=== PATIENT | male | born 1960 | race Caucasian/White ===

== ENCOUNTER 2021-01-10 15:14 | Outpatient (REF) | payer OTHER, SELFPAY ==
[2021-01-10 17:55] LABS: MANUAL DIFF FLAG NO
[2021-01-10 18:06] LABS: Basophils Percent Auto 0.5 % (0-2); Eosinophils Absolute Auto 0.1 X10*3/uL (0.0-0.4); Eosinophils Percent Auto 1.9 % (0-4); Hematocrit 38.4 % (42-52); Hemoglobin 13.5 g/dl (14.0-18.0); Imm Gran Abs Auto 0.01 X10*3/uL (0.00-0.03); Imm Gran Pct Auto 0.2 % (0.0-0.4); Lymphocytes Absolute Auto 1.9 X10*3/uL (1.2-4.9); Lymphocytes Percent Auto 29.5 % (20-40); Mean Corpuscular HGB Conc 35.2 g/dl (31.0-36.0); Mean Corpuscular Hemoglobin 32.1 pg (27.0-33.0); Mean Corpuscular Volume 91.2 fL (80-98); Mean Platelet Volume 10.6 fL (9.4-12.4); Monocytes Absolute Auto 0.5 X10*3/uL (0.1-1.2); Monocytes Percent Auto 8.4 % (2-11); Neutrophils Absolute Auto 3.8 X10*3/uL (2.0-8.3); Neutrophils Percent Auto 59.5 % (45-73); Platelet Count 170 X10*3/uL (160-400); Red Blood Count 4.21 X10*6/uL (4.60-5.80); Red Cell Distribution Width 12.9 % (11.0-16.0); White Blood Count 6.3 X10*3/uL (4.8-10.8)
[2021-01-10 18:24] LABS: Alanine Aminotransferase 16 U/L (0-40); Albumin Level 4.2 g/dL (3.5-5.0); Alkaline Phosphatase 79 U/L (39-117); Anion Gap 11 (12-20); Aspartate Amino Transferase 21 U/L (5-37); Bilirubin Total 1.2 mg/dL (0.0-1.0); Blood Urea Nitrogen 27 mg/dL (9-16); Calcium 9.6 mg/dL (8.4-10.2); Carbon Dioxide 26 mmol/L (22-29); Chloride 106 mmol/L (96-108); Estimated Glomerular Filt Rate > 60; Glucose Random 84 mg/dL (60-115); Potassium 4.2 mmol/L (3.3-5.1); Sodium 139 mmol/L (135-145); Total Protein 7.7 g/dL (6.5-8.0)
[2021-01-10 18:45] LABS: Thyroid Stimulating Hormone 1.22 uIU/mL (0.32-4.0)
== END 2021-01-10 15:15 | disposition home or self-care (01) ==
LOC: HO.MANLDS 15:14
PROVIDERS: PCP Internal Medicine; Visit Provider Internal Medicine
DX: R42 Dizziness and giddiness (principal)
CPT/HCPCS: 36415; 80053; 84443; 85025

== ENCOUNTER 2021-10-10 11:25 | Outpatient (REF) | payer OTHER, SELFPAY ==
[2021-10-10 14:00] LABS: MANUAL DIFF FLAG NO
[2021-10-10 14:22] LABS: Alanine Aminotransferase 16 U/L (0-40); Albumin Level 4.4 g/dL (3.5-5.0); Alkaline Phosphatase 80 U/L (39-117); Anion Gap 11 (12-20); Aspartate Amino Transferase 20 U/L (5-37); Blood Urea Nitrogen 23 mg/dL (9-16); Calcium 9.4 mg/dL (8.4-10.2); Carbon Dioxide 29 mmol/L (22-29); Chloride 102 mmol/L (96-108); Cholesterol 207 mg/dL; Estimated Glomerular Filt Rate > 60; Glucose Random 77 mg/dL (60-115); HDL Cholesterol 35 mg/dL; LDL Cholesterol Calculated 135 mg/dl; Potassium 4.2 mmol/L (3.3-5.1); Sodium 138 mmol/L (135-145); Total Protein 8.1 g/dL (6.5-8.0); Triglycerides 186 mg/dL
[2021-10-10 14:27] LABS: Basophils Percent Auto 0.4 % (0-2); Eosinophils Absolute Auto 0.1 X10*3/uL (0.0-0.4); Eosinophils Percent Auto 1.8 % (0-4); Hematocrit 43.5 % (42.0-52.0); Hemoglobin 14.6 g/dl (14.0-18.0); Imm Gran Abs Auto 0.02 X10*3/uL (0.00-0.03); Imm Gran Pct Auto 0.3 % (0.0-0.4); Lymphocytes Absolute Auto 2.4 X10*3/uL (1.2-4.9); Lymphocytes Percent Auto 33.8 % (20-40); Mean Corpuscular HGB Conc 33.6 g/dl (31.0-36.0); Mean Corpuscular Hemoglobin 31.1 pg (27.0-33.0); Mean Corpuscular Volume 92.8 fL (80.0-98.0); Mean Platelet Volume 10.3 fL (9.4-12.4); Monocytes Absolute Auto 0.6 X10*3/uL (0.1-1.2); Monocytes Percent Auto 8.8 % (2-11); Neutrophils Percent Auto 54.9 % (45-73); Platelet Count 166 X10*3/uL (160-400); Red Blood Count 4.69 X10*6/uL (4.60-5.80); Red Cell Distribution Width 13.2 % (11.0-16.0); White Blood Count 7.2 X10*3/uL (4.8-10.8)
[2021-10-10 14:49] LABS: Prostate Specific Antigen 1.22 ng/mL (<0.05-4.0)
[2021-10-10 15:04] LABS: Erythrocyte Sedimentation Rate 15 MM/HR (0-15)
[2021-10-11 05:07] LABS: ~HepC Num1 0.24 S/CO (0.00-0.79); ~Hepatitis C Antibody Nonreactive (Nonreactive)
== END 2021-10-10 11:26 | disposition home or self-care (01) ==
LOC: HO.MANLDS 11:25
PROVIDERS: Visit Provider Internal Medicine
DX: Z12.5 Encounter for screening for malignant neoplasm of prostate (principal); Z11.59 Encounter for screening for other viral diseases; H81.12 Benign paroxysmal vertigo, left ear; I10 Essential (primary) hypertension
CPT/HCPCS: 36415; 80053; 80061; 84153; 85025; 85652; 86803

== ENCOUNTER 2022-05-13 16:16 | Outpatient (REF) | payer OTHER, SELFPAY ==
[2022-05-13 18:43] LABS: MANUAL DIFF FLAG NO
[2022-05-13 18:46] LABS: Basophils Absolute Auto 0.1 X10*3/uL (0.0-0.2); Basophils Percent Auto 0.7 % (0-2); Eosinophils Absolute Auto 0.1 X10*3/uL (0.0-0.4); Eosinophils Percent Auto 1.2 % (0-4); Hemoglobin 12.8 g/dl (14.0-18.0); Imm Gran Abs Auto 0.02 X10*3/uL (0.00-0.03); Imm Gran Pct Auto 0.3 % (0.0-0.4); Lymphocytes Absolute Auto 1.8 X10*3/uL (1.2-4.9); Mean Corpuscular HGB Conc 33.7 g/dl (31.0-36.0); Mean Corpuscular Hemoglobin 30.6 pg (27.0-33.0); Mean Corpuscular Volume 90.9 fL (80.0-98.0); Mean Platelet Volume 10.2 fL (9.4-12.4); Monocytes Absolute Auto 0.6 X10*3/uL (0.1-1.2); Neutrophils Percent Auto 65.8 % (45-73); Platelet Count 211 X10*3/uL (160-400); Red Blood Count 4.18 X10*6/uL (4.60-5.80); Red Cell Distribution Width 12.9 % (11.0-16.0); White Blood Count 7.6 X10*3/uL (4.8-10.8)
[2022-05-13 19:03] LABS: Alanine Aminotransferase 17 U/L (0-40); Albumin Level 4.1 g/dL (3.5-5.0); Alkaline Phosphatase 93 U/L (39-117); Anion Gap 12 (12-20); Aspartate Amino Transferase 21 U/L (5-37); Bilirubin Total 0.9 mg/dL (0.0-1.0); Blood Urea Nitrogen 29 mg/dL (9-16); Calcium 9.6 mg/dL (8.4-10.2); Carbon Dioxide 27 mmol/L (22-29); Chloride 104 mmol/L (96-108); Estimated Glomerular Filt Rate > 60; Glucose Random 80 mg/dL (60-115); Potassium 4.8 mmol/L (3.3-5.1); Sodium 138 mmol/L (135-145); Total Protein 7.6 g/dL (6.5-8.0); Uric Acid 6.3 mg/dL (3.4-7.0)
[2022-05-13 19:35] LABS: Erythrocyte Sedimentation Rate 34 MM/HR (0-15)
== END 2022-05-13 16:17 | disposition home or self-care (01) ==
LOC: HO.MANLDS 16:16
PROVIDERS: Visit Provider Internal Medicine
DX: L03.116 Cellulitis of left lower limb (principal)
CPT/HCPCS: 36415; 80053; 84550; 85025; 85652; 86140

== ENCOUNTER 2022-11-06 08:36 | Outpatient (REF) | payer OTHER, SELFPAY | END 2022-11-06 08:37 | disposition home or self-care (01) | LOC: HO.MANLDS 08:36 | PROVIDERS: Visit Provider Internal Medicine | DX: Z12.5 Encounter for screening for malignant neoplasm of prostate (principal); I10 Essential (primary) hypertension; E78.2 Mixed hyperlipidemia | CPT/HCPCS: 36415; 80053; 80061; 84153; 85025 ==

== ENCOUNTER 2023-01-03 11:32 | Outpatient (REF) | payer OTHER, SELFPAY ==
[2023-01-03 13:09] LABS: MANUAL DIFF FLAG NO
[2023-01-03 13:30] LABS: Basophils Percent Auto 0.5 % (0-2); Eosinophils Absolute Auto 0.1 X10*3/uL (0.0-0.4); Eosinophils Percent Auto 0.9 % (0-4); Hematocrit 40.7 % (42.0-52.0); Hemoglobin 14.4 g/dl (14.0-18.0); Imm Gran Abs Auto 0.02 X10*3/uL (0.00-0.03); Imm Gran Pct Auto 0.3 % (0.0-0.4); Lymphocytes Absolute Auto 2.3 X10*3/uL (1.2-4.9); Lymphocytes Percent Auto 36.1 % (20-40); Mean Corpuscular HGB Conc 35.4 g/dl (31.0-36.0); Mean Corpuscular Hemoglobin 31.9 pg (27.0-33.0); Mean Corpuscular Volume 90.2 fL (80.0-98.0); Mean Platelet Volume 10.1 fL (9.4-12.4); Monocytes Absolute Auto 0.6 X10*3/uL (0.1-1.2); Neutrophils Absolute Auto 3.4 x10*3/uL (2.0-8.3); Neutrophils Percent Auto 53.2 % (45-73); Platelet Count 184 X10*3/uL (160-400); Red Blood Count 4.51 X10*6/uL (4.60-5.80); Red Cell Distribution Width 12.9 % (11.0-16.0); White Blood Count 6.5 X10*3/uL (4.8-10.8)
[2023-01-03 15:07] LABS: Alanine Aminotransferase 18 U/L (0-40); Albumin Level 4.3 g/dL (3.5-5.0); Alkaline Phosphatase 84 U/L (39-117); Anion Gap 14 (12-20); Aspartate Amino Transferase 21 U/L (5-37); Bilirubin Total 1.4 mg/dL (0.0-1.0); Blood Urea Nitrogen 29 mg/dL (9-16); Calcium 10.1 mg/dL (8.4-10.2); Carbon Dioxide 24 mmol/L (22-29); Chloride 104 mmol/L (96-108); Cholesterol 169 mg/dL (<200); Estimated Glomerular Filt Rate > 60; Glucose Random 80 mg/dL (60-115); HDL Cholesterol 37 mg/dL (>40); LDL Cholesterol Calculated 102 mg/dL (<100); Potassium 4.3 mmol/L (3.3-5.1); Sodium 138 mmol/L (135-145); Triglycerides 150 mg/dL (<150)
[2023-01-03 15:09] LABS: Prostate Specific Antigen 1.49 ng/mL (<0.05-4.0)
== END 2023-01-03 11:33 | disposition home or self-care (01) ==
LOC: HO.MANLDS 11:32
PROVIDERS: Visit Provider Internal Medicine
DX: Z12.5 Encounter for screening for malignant neoplasm of prostate (principal); E78.2 Mixed hyperlipidemia; I10 Essential (primary) hypertension
CPT/HCPCS: 36415; 80053; 80061; 84153; 85025

== ENCOUNTER 2023-02-22 17:58 | Emergency (ER) | payer OTHER, SELFPAY ==
--- NOTE | ~2023-02-22 | XR_ITS ---
EXAMINATION: XR LUMBOSACRAL SPINE CLINICAL INFORMATION: Left hip pain radiating down leg. COMPARISON: None available. TECHNIQUE: Three views of the lumbosacral spine. FINDINGS: Alignment is anatomic. No compression fracture. Multilevel degenerative disc disease with severe degenerative disc disease at L5-S1 and more mild changes throughout the rest of the lumbar spine. XR/XR lumbar spine 2-3V IMPRESSION: Multilevel degenerative disc disease most prominent at L5-S1.
[2023-02-22 18:05] VITALS: BP 151/91; PULSE 92; RESP 20; TEMP 36.8; O2SAT 97; BMI 27.4
--- NOTE | 2023-02-22 18:07 | ED.GENADULT ---
HPI - General Adult General Chief complaint: Back Pain/Injury Stated complaint: Left leg pain 4 days Time Seen by Provider: 02/22/23 23:17 Source: patient, family, RN notes reviewed and old records reviewed Mode of arrival: ambulatory Limitations: no limitations History of Present Illness HPI narrative: 62-year-old male presents for evaluation of left hip pain. His pain is been present for the last 5 days. His pain starts the left hip and radiates to the left thigh and her left knee. His pain is worse with resting after standing and walking for a long time he reports that he had an x-ray at Urgent Care yesterday of the left hip that showed [id number] arthritis but no other abnormalities he denies any falls or trauma. 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 Related Data Previous Rx's Medication Instructions Recorded dexamethasone 4 mg tablet 4 mg PO BID #6 tabs 02/22/23 lidocaine 5 % topical patch 1 patch topical DAILY #15 ea 02/22/23 oxycodone 5 mg tablet 5 mg PO Q6H PRN severe pain (scale 02/22/23 score 7-10) #16 tabs Allergies Allergy/AdvReac Type Severity Reaction Status Date / Time Penicillins Allergy Unknown unknown Verified 02/22/23 18:10 Review of Systems Constitutional: Constitutional: Denies body ache(s), Denies chills and Denies fever(s) Eyes: Eyes: Denies blurry vision Cardiovascular: Cardiovascular: Denies chest pain and Denies dyspnea Respiratory: Respiratory: Denies cough and Denies dyspnea Gastrointestinal: Gastrointestinal: Denies abdominal pain, Denies nausea and Denies vomiting Musculoskeletal: Musculoskeletal: Reports arthralgias, Reports joint swelling and Reports limited range of motion Integumentary/Breasts: Skin/Breast: Denies rash PMFSH Social History Social History Alcohol intake: current Alcohol intake frequency: holidays/special occasions only Smoked in Last 30 Days: Yes Use of substances other than those prescribed or required for medical reasons: Yes Substance Use Type: Marijuana Any prior treatment program specific to substance use: No Advance Directives: No Advance Directives Information Provided: No Physical Exam ED Vital Signs: Vital Signs - 24 hr 02/22/23 18:05 02/22/23 21:02 Temperature 98.2 F 97.9 F Pulse Rate 92 75 Respiratory Rate 20 14 Blood Pressure 151/91 H 156/75 H Pulse Oximetry 97 96 Oxygen Delivery Method Room Air Room Air BMI result Body Mass Index 27.4 Const General: healthy appearing, comfortable, no acute distress, alert and awake Nutritional Appearance: well nourished Orientation/consciousness: patient oriented x3 HENMT Head: Yes normocephalic and Yes atraumatic Eyes Eyelids: Yes eyelids normal Conjunctivae: conjunctivae normal Sclerae: sclerae normal Corneas: corneas normal Pupils: Equal, round and reactive pupils present EOM: EOMs intact bilaterally Neck Neck: Yes full ROM Resp Effort & Inspection: normal respiratory effort, able to speak in complete sentences and not labored Skin General skin exam: no rashes or lesions noted and elasticity normal Neuro General: patient oriented x3 Cranial nerves: Yes Equal, round and reactive pupils present and Yes Bilaterally intact EOM present Cognition (Neuro): normal cognition Extrem Other: Moving all extremities well without any obvious deformities. patient has minimal left hip tenderness to palpation. There is no significant lumbar vertebral tenderness or left lumbar paraspinous muscle tenderness. Negative straight leg raise on left. Course Course Course Narrative: This is a rapid medical exam: Additional HPI, ROS, PE not included below will be deferred to primary provider. Patient is a 62-year-old male presenting to the ED with complaint of left hip pain radiating to groin, states is worst at night. Symptoms have been ongoing for one week, began after hauling wood. Denies any swelling. States the pain will intermittently shoot down to left knee and foot. Has taken ibuprofen 800mg, tizanidine, Tylenol, Tramadol at baseline, all without relief. Denies any groin or scrotal swelling. Went [facility] urgent care yesterday and had left hip x-ray which was remarkable only for osteoarthritis of hip and SI joint. Plan: lumbar x-ray Medications Administered Discontinued Medications Generic Name Dose Route Start Last Admin Trade Name Freq PRN Reason Stop Dose Admin Dexamethasone 4 mg 02/22/23 23:31 02/22/23 23:40 Dexamethasone 4 Mg Tablet PO 02/22/23 23:32 4 mg ONCE ONE Administration Ibuprofen 600 mg 02/22/23 23:10 02/22/23 23:41 Ibuprofen 600 Mg Tablet PO 02/22/23 23:11 Not Given ONCE ONE Oxycodone HCl 5 mg 02/22/23 23:31 02/22/23 23:40 Oxycodone Hcl Immed Release 5 Mg Tablet PO 02/22/23 23:32 5 mg ONCE ONE Administration Medical Decision Making Medical Decision Making [facility] Narrative: 62-year-old male with no significant past medical history presents for evaluation of pain to his left hip and leg. His physical exam is most consistent with bursitis. He has been using NSAIDs and Tylenol with minimal relief. He is constantly and is he reports that he is a workaholic and not resting. There was no trauma, he had a negative left hip x-ray which she brought with him to confirm. He had an x-ray lumbar spine at this facility which shows [id number] arthritis. This was discussed with him. There are no warning signs for cauda equina syndrome he will be treated symptomatically and will follow up with his PCP Differential Diagnosis Differential Diagnoses: The differential diagnosis associated with the presentation includes osteoarthritis Degenerative joint disease Bursitis radiculopathy Sciatica Avascular necrosis Independent Interpretation I performed an independent interpretation of an: Plain X-Ray Interpretation: no obvious compression fracture Radiology Impression Discussion of test interpretation with radiology: I have reviewed the radiologist's reading. Radiologist Impression: multilevel degenerative disc disease most prominent at L5-S1 Discharge Plan Discharge Clinical Impression: Acute pain of left hip Patient Disposition: Home, Self-Care Instructions: Arthralgia (ED) Additional Instructions: alternate ibuprofen/ Tylenol as needed for pain. Use oxycodone for more severe, breakthrough pain this may make you sleepy, do not drink alcohol or drive after taking them take dexamethasone twice daily for the next 3 days follow-up with your primary doctor I strongly recommend taking a few days off from work and a work note is enclosed Prescriptions: New oxycodone 5 mg tablet 5 mg PO Q6H PRN (Reason: severe pain (scale score 7-10)) Qty: 16 0RF Rx Instructions: Partial Fill upon patient request. dexamethasone 4 mg tablet 4 mg PO BID Qty: 6 0RF lidocaine 5 % adhesive patch,medicated 1 patch topical DAILY Qty: 15 0RF Rx Instructions: leave on most painful area for up to 12 hrs Stand Alone Forms: Work/School Release
[2023-02-22 21:02] VITALS: BP 156/75; PULSE 75; RESP 14; TEMP 36.6; O2SAT 96
[2023-02-22] MEDS: oxyCODONE HCl Immed Release 5 MG TABLET PO (23:40)
[2023-02-22] MEDS: dexAMETHasone 4 MG TABLET PO (23:40)
[2023-02-23 00:15] VITALS: BP 156/75; PULSE 75; RESP 15; TEMP 36.4; O2SAT 95
[2023-02-23] MEDS: Lidocaine 4 % Patch ADH..PATCH 1 PATCH TRANSDERMA (00:23)
== END 2023-02-23 00:30 | disposition home or self-care (01) ==
PROVIDERS: Emergency Provider Emergency Medicine Emergency Medical Services
DX: M25.552 Pain in left hip (principal)
CPT/HCPCS: 72100; 99283; 99284; J8540

== ENCOUNTER 2024-10-15 16:02 | Outpatient (REF) | payer OTHER, SELFPAY ==
--- OUTSIDE RECORDS SUMMARY | 2024-10-15 16:04 | XMS_ITS | Continuity of Care Document ---
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 MODERATE MUST MEET 2 OUT OF 3 ELEMENTS: PROBLEMS, DATA OR RISK ELEMENT 1: PROBLEMS ADDRESSED 1 OR MORE CHRONIC ILLNESS WITH EXACERBATION OR 2 OR MORE STABLE CHRONIC ILLNESSES OR 1 UNDIAGNOSED NEW PROBLEM OR 1 ACUTE ILLNESS W/SYMPTOMS OR 1 ACUTE COMPLICATED INJURY ELEMENT 2: DATA MUST MEET 1 OF 3 CATEGORIES CATEGORY 1: REVIEW OF PRIOR EXTERNAL NOTES, REVIEW OF RESULTS, ORDERING OF EACH TEST, ASSESSMENT REQUIRING INDEPENDENT HISTORIAN OR CATEGORY 2: INDEPENDENT INTERPRETATION OF TESTS BY ANOTHER PHYSICIAN OR SPECIALIST OR CATEGORY 3: DISCUSSION OF MGT OR TEST INTERPRETATION W/EXTERNAL PHYSICIAN OR SPECIALIST ELEMENT 3: RISK RISK OF COMPLICATIONS AND/OR MORBIDITY OR MORTALITY OF PATIENT MANAGEMENT PROVIDER MUST THOROUGHLY DOCUMENT EACH ELEMENT THAT IS COVERED Not available 10/12/2024 16:30:32 Plan of Treatment Reminders Order Date Submit Date Provider Last Modified By Organization Details Last Modified Time Details Appointments FOLLOW UP 15 2024 04:15P M DR SAVAGE Not available Not available Not available Lab testoster one, total, serum 2024 025 [facility], [address] [place] [address], [place], [address], 10/12/2024 16:36:45 vitamin B12 + folate, serum or blood 2024 025 [facility], [address] [place] [address], [place], [address], 10/12/2024 16:36:46 vitamin D, 25-hydrox y, total, serum 2024 025 [facility], [address] [place] [address], [id number], 10/12/2024 16:36:46 CBC 2024 025 [facility], [address] [place] [address], [id number], 10/12/2024 16:36:45 CMP, serum or plasma 2024 025 [facility], [address] [place] [address], [id number], 10/12/2024 16:36:45 ESR (erythroc yte sedimenta tion rate), blood [address] [place] [address] Laboratory, [address] [place] [address], [id number], 10/12/2024 16:36:45 TSH, serum or plasma [address] [place] [address] Laboratory, [address] [place] [address], [id number], 10/12/2024 16:36:36 PSA, serum or plasma [address] [place] [address] Laboratory, [address] [place] [address], [id number], 10/12/2024 16:36:36 Referral None recorded. Procedures None recorded. Surgeries None recorded. Imaging None recorded. Medication Orders None recorded. Patient TargetsNo targets recorded. Patient Instructions Encounter Date Encounter Id Patient Instructions Last Modified By Organization Details Last Modified Time 10/12/2024 [id number] fatigue: care instructions Not available 10/12/2024 16:30:34 Reason for Referral None Reported. Problems Name Problem SNOMED Code Status Onset Date Resolution Date Notes Provider Name and Address Organization Details Recorded Time Mixed hyperlip idemia 304009313 Active 2020 Rachel Walker null, [facility] 4 11:08:04 Tobacco user 052207607 Active 2020 Rachelrenetta Walker null, [facility] 4 11:08:04 Chronic pain syndrome 615466113 Active 2020 tramadol Rachelrenetta Walker null, [facility] 4 11:08:04 [facility] hyperten gumaro 74043319 Active 2020 Rachel Walker null, [facility] 4 11:08:04 Alopecia areata 62636404 Active 2020 Rachelrenetta Walker null, [facility] 4 11:08:04 Low back pain 351195190 Active 2020 Rachelrenetta Walker null, [facility] 4 11:08:04 Allergic rhinitis 94309850 Active 2020 pollen Rachel Walker null, [facility] 4 11:08:04 Position al vertigo 366796856 Active 2021 Rachelrenetta Walker null, [facility] 4 11:08:04 Neck pain 86135356 Active 2021 Rachel Walker null, [facility] 4 11:08:04 COVID-19 558053506 Active 2021 Rachel Walker null, [facility] 4 11:08:14 Gout 11338725 Active 2021 Rachel Walker null, [facility] 4 11:08:04 Cellulit is of left foot 65458460229 352337 Active 2021 Rachel Walker null, [facility] 4 11:08:14 Nausea 398933082 Active 2021 Rachel Walker null, [facility] 4 11:08:14 Pain in left foot 37097002768 9107 Active 2021 Rachel Walker null, [facility] 4 11:08:04 Neuropat hy 956543480 Active 2021 Rachelrenetta Walker null, [facility] 4 11:08:04 Osteomye litis of left foot 93191976571 30316 Active 2022 Rachel Walker null, [facility] 4 11:08:04 Palpitat ions 80278829 Active 2022 Rachel Walker null, [facility] 4 11:08:04 Degenera tion of lumbar interver tebral disc 27679195 Active 2022 Rachel Walker null, [facility] 4 11:08:04 Weakness of left lower limb Active 2022 Rachel Walker null, [facility] 4 11:08:04 Lumbar spondylo sis 040392516 Active 2022 Rachel Walker null, [facility] 4 11:08:04 Spasm 74195649 Active 2022 Rachel Walker null, [facility] 4 11:08:04 Pain in lower limb 83429463 Active 2022 Rachel Walker null, [facility] 4 11:08:04 Nausea and vomiting 54833634 Active 2022 Rachel Walker null, [facility] 4 11:08:14 Rhabdomy olysis 554021820 Active 2022 Rachel Walker null, [facility] 4 11:08:04 Pain in bilatera l legs 58381625952 877737 Active 2023 Rachel Walker null, [facility] 4 11:08:04 Pain of bilatera l hip joints 88890634343 116234 Active 2023 Bo Savage, DO [address] [place] [address], [place], [address], [facility] 4 16:49:59 Pain of left knee joint 54896412659 4107 Active 2023 Bo Savage DO [address] [place] [address], [address], [facility] 4 16:50:16 Mood disorder 52919213 Active 2023 Bo Savage DO [address] [place] [address], [address], [facility] 4 16:55:07 Pain of left hip joint 75164999902 9100 Active 2023 Bo Savage DO [address] [place] [address], [phone], [facility] 4 21:38:29 Traumati c rupture of labrum of left acetabul um 28672483711 052207 Active 2023 Bo Savage DO [address] [place] [address], [address], [facility] 4 16:25:10 Psoas syndrome 974243158 Active 2024 Bo Savage DO [address] [place] [address], [address], [facility] 5 16:22:27 Iliopsoa s bursitis of left hip 17633580649 11988 Active 2024 Bo Savage DO [address] [place] [address], [address], [facility] 5 16:22:55 Malaise and fatigue 031824461 Active 2024 Bo Savage DO [address] [place] [address], [address], [facility] 5 16:28:21 Problem Notes None recorded. Procedures Surgical History Date Name Laterality Status Provider Name and Address Organization Details Recorded Time 7 Colonoscopy completed Tiffany Gaitan [facility] 11/12/2022 16:05:00 Imaging Results None recorded. Procedure Notes None recorded. Medical Equipment None Reported. Allergies Allergen ID Allergen Name Allergen Category Reaction Reaction Severity Criticality Documentation Date Start Date Code Code System Note Provider Name and Address Organization Details Recorded Time 4322 penicilli n V Not available Not available Not available Not available 07/05/2020 7984 RxNorm child padron Tiffany clemente [facility] 08:50:49 4323 POLLEN EXTRACTS environme nt,medica tion Not available Not available Not available 07/05/2020 68531 6 RxNorm Tiffany clemente [facility] 08:53:20 Medications Name Sig Start Date Stop Date Status Note LastModified by Organization Details LastModified Time p-4 pain formulation versatile Apply 1-3 grams to the affected area 3-4 times daily (LEFT FOOT) 09/02 completed Not Available Not Available Not Available cyclobenzap rine 10 mg tablet Take 1 tablet 3 times a day by oral route as needed for 14 days. 02/19 completed Not Available Not Available Not Available pramipexole 1 mg tablet TAKE 1 TABLET BY MOUTH THREE TIMES A DAY NEEDED FOR 7 DAYS 09/02 completed Not Available Not Available Not Available bupropion HCl SR 150 mg tablet,12 hr sustained-r elease TAKE 1 TABLET BY MOUTH TWICE A DAY 06/07 completed Not Available Not Available Not Available prednisone 10 mg tablet TAKE 5 TABS DAILY IN THE MORNING X2 DAYS, 4 TABS X1 DAY, 3 TABS X1 DAY, 2 TABS X1 DAY, 1 TAB X1 DAY active Not Available Not Available No t Available clindamycin HCl 300 mg capsule TAKE 1 CAPSULE EVERY 8 HOURS FOR 7 DAYS active Not Available Not Available No t Available lisinopril 20 mg-hydrochl orothiazide 12.5 mg tablet Take 1 tablet every day by oral route. 08/28 completed Not Available Not Available Not Available tizanidine 4 mg tablet Take 1 tablet every 6 hours by oral route as needed for 10 days. 05/10 completed Not Available Not Available Not Available ondansetron HCl 8 mg tablet Take 1 tablet twice a day by oral route as needed for 7 days. 09/02 completed Not Available Not Available Not Available meloxicam 15 mg tablet TAKE 1 TABLET BY MOUTH EVERY DAY WITH DINNER 06/07 completed Not Available Not Available Not Available lisinopril 20 mg tablet TAKE 1 TABLET BY MOUTH EVERY DAY active Not Available Not Available No t Available Medrol (Desean) 4 mg tablets in a dose pack Take 1 dose pk by oral route. 05/01 completed Not Available Not Available Not Available prednisone 20 mg tablet TAKE 2 TABLETS EVERY DAY BY ORAL ROUTE FOR 14 DAYS. 03/14 completed Not Available Not Available Not Available Zithromax Z-Desean 250 mg tablet TAKE 2 TABLETS (500 MG) BY ORAL ROUTE ONCE DAILY FOR 1 DAY THEN 1 TABLET (250 MG) BY ORAL ROUTE ONCE DAILY FOR 4 DAYS 01/11 completed Not Available Not Available Not Available tramadol 50 mg tablet TAKE 2 TABLETS BY MOUTH 3 TIMES A DAY active Not Available Not Available No t Available acetaminoph en 500 mg tablet TAKE 1 TABLET BY MOUTH EVERY 8 HOURS FOR 7 DAYS active Not Available Not Available No t Available chlorzoxazo ne 250 mg tablet TAKE 2-3 TABLETS BY MOUTH UP TO THREE TO FOUR TIMES DAILY NEEDED FOR SPASMS 06/07 completed Not Available Not Available Not Available flaxseed oil 1,000 mg capsule Take 3 capsules every day by oral route. 06/07 completed Not Available Not Available Not Available ceftriaxone 1 gram solution for injection TAKE 1 G BY INJECTION ROUTE DIRECTED FOR 1 DAY. 03/14 completed Not Available Not Available Not Available hydromorpho ne 2 mg tablet Take 1 tablet every 8 hours by oral route as needed for 5 days. 09/02 completed Not Available Not Available Not Available doxycycline monohydrate 100 mg capsule TAKE 1 CAPSULE BY MOUTH TWICE A DAY FOR 7 DAYS active Not Available Not Available No t Available cephalexin 500 mg capsule TAKE 1 CAPSULE BY MOUTH EVERY 6 HOURS FOR 10 DAYS 03/14 completed Not Available Not Available Not Available simvastatin 20 mg tablet TAKE 1 TABLET BY MOUTH EVERY DAY active Not Available Not Available No t Available dexamethaso ne 4 mg tablet TAKE 1 TABLET BY MOUTH TWICE A DAY FOR 10 DAYS 03/03 completed Not Available Not Available Not Available ibuprofen 400 mg tablet TAKE 1 TABLET TWICE A DAY NEEDED FOR 7 DAYS active Not Available Not Available No t Available indomethaci n 50 mg capsule TAKE 1 CAPSULE BY MOUTH THREE TIMES A DAY FOR 7 DAYS 09/02 completed Not Available Not Available Not Available gabapentin 300 mg capsule TAKE 1 CAPSULE BY MOUTH EVERYDAY AT BEDTIME active Not Available Not Available No t Available diclofenac sodium 75 mg tablet,martha yed release Take 1 tablet twice a day by oral route for 14 days. 02/19 completed Not Available Not Available Not Available codeine 10 mg-guaifene sin 100 mg/5 mL oral liquid TAKE 10 ML BY MOUTH EVERY 4 HOURS NEEDED FOR 7 DAYS. 03/14 completed Not Available Not Available Not Available ibuprofen 600 mg tablet active Not Available Not Available Not Available diazepam 5 mg tablet Take 1 tablet 3 times a day by oral route as needed for 7 days. 09/02 completed Not Available Not Available Not Available oxycodone 5 mg tablet Take 1 tablet every 4 hours by oral route as needed for 7 days. 03/14 completed Not Available Not Available Not Available escitalopra m 10 mg tablet TAKE 1 TABLET BY MOUTH EVERY DAY FOR 30 DAYS 11/25 completed Not Available Not Available Not Available Fish Oil 1,000 mg (120 mg-180 mg) capsule Take 3 capsules every day by oral route. active Not Available Not Available No t Available Vitals Date Recorded Body height Body mass index (BMI) Body weight Heart rate Oxygen saturation Oxygen saturation in Arterial blood by Pulse oximetry Systolic blood pressure Diastolic blood pressure Provider Name and Address Organization Details Last Updated DateTime 172.72 cm 26.8 kg/m2 19358.2 6 g 96 /min 68 % 68 % 120 mm[Hg] 70 mm[Hg] Paulette Garcia [facility] 16:20:13 Social History Question Answer Notes LastModified by Organizat ion Details LastModified Time Tobacco Smoking Status Current Every Day Smoker Tiffany clemente [facility] 07/11/2020 16:15:41 What Was The Date Of Your Most Recent Tobacco Screening? 10/12/2024 [email or web address] Information not available 10/12/2024 How Much Tobacco Do You Smoke? 0.5 PPD [email or web address] Information not available 07/11/2020 Sex: Male Functional Status Question Answer Note LastModified by Organization D etails LastModified Time Do you or have you ever used any other forms of tobacco or nicotine? No [email or web address] Information not available 05/10/2024 Mental Status None recorded. Family History Nothing Reported. Medical History No medical history recorded. Immunizations Vaccine Type Date Status Note Provider Nam e and Address Organization Details Recorded Time Tdap 5 completed Not Available [facility] 04/22/2022 22:37:08 tetanus toxoid, unspecified formulation 9 completed Not Available [facility] 04/22/2022 22:37:08 Influenza, split virus, quadrivalent, preservative 0 completed Not Available [facility] 04/22/2022 22:37:08 Past Encounters Encounter ID Performer Location Encounter Start Date Encounter Closed Date Diagnosis/Indication Diagnosis SNOMED-CT Code Diagnosis ICD10 Code Diagnosis Note [id number] Bo Savage DO [facility] [address] [place] [address] 10/12/2024 16:09:27 10/12/2024 16:37:53 Depression screening 309183122 Z13.31 neg Essential hypertension 57219536 I10 stable and no issuesno vertigo sx feeling wellnoted that his lab showed K+ 5.4 this last time but his k has been stable so believe this might not be an issue Mixed hyperlipidemia 267 128049 E78.2 we will rechk the cholest later in the year but we are holding the statin Malaise and fatigue 2717 24036 R53.81 R53.83 ongoing for months and is a big issue now Health Concerns Section Related Observation LastModified by Organization Detai ls LastModified Time None Recorded Concern Status LastModified by Organization Details LastModified Time None Recorded Payers Encounter Date Sequence Insurance Name Policy Number Policy Peters Covered Member ID Peters Member ID Guarantor Name 10/12/2024 1 NAVA (O) [id number] 2 Mercedes Nash [id number] Ruben Nash Notes Date Note Type Note Provider Name and Address Organization Details Recorded Time 10/13/19 25 text/htm l Care Management - HyperlipidemiaReported bypatient.Control:usually well controlled; improving; at goal Complications:no coronary artery disease; no heart attack; no cardiovascular disease; no pancreatitis; no strokeCare Management - HypertensionReported bypatient.Self Care:not under emotional stress Severity:symptoms are improving; does not interfere with daily activities Associated Symptoms:no dizziness; no lightheadedness; no chest pain; no shortness of breath; no palpitations; no edema; no calf muscle cramps; no blurred vision; no confusion; no headaches; no fatigue relates not feeling well states feeling tired a lotseen by spine and was given gabpentin for leg cramps and has workedhad epidural in back with relief for two daysnow they are going to do a emgrelates that he is felling not himself feels like sh@t. here for rechkrelates that he is still having pain in left lower lumbar and radiation to left leggetting harder to walk and is unable to work effectively at times states pain is becoming worse and his left leg is now getting weakhe has undergone 6 weeks of PT almost 7 weeksthis has not helped and they told him he is at an endpoint with them and needs further w/u Bo Savage, [address], [place], [address], [place] [facility] 10/12/2024 16:37:07
[2024-10-15 18:01] LABS: MANUAL DIFF FLAG NO
[2024-10-15 18:12] LABS: Basophils Percent Auto 0.7 % (0-2); Eosinophils Absolute Auto 0.1 X10*3/uL (0.0-0.4); Eosinophils Percent Auto 1.6 % (0-4); Hematocrit 34.5 % (42.0-52.0); Hemoglobin 11.9 g/dl (14.0-18.0); Imm Gran Abs Auto 0.03 X10*3/uL (0.00-0.03); Imm Gran Pct Auto 0.5 % (0.0-0.4); Lymphocytes Absolute Auto 1.8 X10*3/uL (1.2-4.9); Lymphocytes Percent Auto 29.4 % (20-40); Mean Corpuscular HGB Conc 34.5 g/dl (31.0-36.0); Mean Corpuscular Hemoglobin 32.1 pg (27.0-33.0); Mean Platelet Volume 10.3 fL (9.4-12.4); Monocytes Absolute Auto 0.6 X10*3/uL (0.1-1.2); Monocytes Percent Auto 10.2 % (2-11); Neutrophils Absolute Auto 3.5 x10*3/uL (2.0-8.3); Neutrophils Percent Auto 57.6 % (45-73); Platelet Count 197 X10*3/uL (160-400); Red Blood Count 3.71 X10*6/uL (4.60-5.80); Red Cell Distribution Width 13.6 % (11.0-16.0); White Blood Count 6.2 X10*3/uL (4.8-10.8)
[2024-10-15 18:27] LABS: Alanine Aminotransferase 21 U/L (0-40); Albumin Level 4.4 g/dL (3.5-5.0); Alkaline Phosphatase 76 U/L (39-117); Anion Gap 11 (12-20); Aspartate Amino Transferase 32 U/L (5-37); Bilirubin Total 0.9 mg/dL (0.0-1.0); Blood Urea Nitrogen 32 mg/dL (9-16); Calcium 9.6 mg/dL (8.4-10.2); Carbon Dioxide 25 mmol/L (22-29); Chloride 104 mmol/L (96-108); Estimated Glomerular Filt Rate > 60; Glucose Random 87 mg/dL (60-115); Potassium 4.3 mmol/L (3.3-5.1); Sodium 136 mmol/L (135-145); Total Protein 7.5 g/dL (6.5-8.0)
[2024-10-15 18:37] LABS: Prostate Specific Antigen 1.69 ng/mL (<0.05-4.0)
[2024-10-15 18:46] LABS: Thyroid Stimulating Hormone 2.17 uIU/mL (0.32-4.0); Vitamin D 25-OH Total 39.7 ng/mL (>30)
[2024-10-15 19:02] LABS: Vitamin B12 925 pg/mL (200-900)
[2024-10-15 19:06] LABS: Erythrocyte Sedimentation Rate 34 MM/HR (0-15)
[2024-10-19 15:38] LABS: Testosterone, Total 186 ng/dL (250-1100)
== END 2024-10-15 16:03 | disposition home or self-care (01) ==
LOC: HO.MANLDS 16:02
PROVIDERS: Visit Provider Internal Medicine
DX: Z12.5 Encounter for screening for malignant neoplasm of prostate (principal); R53.81 Other malaise
CPT/HCPCS: 36415; 80053; 82306; 82607; 82746; 84153; 84403; 84443; 85025; 85652

== ENCOUNTER 2024-11-02 16:07 | Outpatient (REF) | payer OTHER, SELFPAY ==
--- OUTSIDE RECORDS SUMMARY | 2024-11-02 16:26 | XMS_ITS | Data Portability ---
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 Patient understands this is a scheduled visit and the usual procedures with regard to billing and confidentialit y apply. Patient was notified that the provider location is [facility] Patient location: home During the visit the patient s medical history and medical record were reviewed. The patient was notified to call our office for worsening or urgent symptoms. Video [email or web address] Not available 04/18/2020 17:15:03 Plan of Treatment Reminders Order Date Submit Date Provider Last Modified By Organization Details Last Modified Time Details Appointments None recorded. Lab None recorded. Referral None recorded. Procedures None recorded. Surgeries None recorded. Imaging XR, chest - 3 wks of rhinorrhea , 10 cough, 3 d fever. ? pneumonia. pos smoking hx. 2019 020 [facility] (Imaging), [address], [place], [address], 0 11:52:34 Medication Orders cyclobenza adriane 5 mg tablet 2019 020 [facility] #[id number], [address] [place], [address], 0 09:58:27 naproxen 500 mg tablet 2019 020 [facility], [address] [place], [address], 0 09:59:46 tramadol 50 mg tablet 2018 019 [email or web address], [address] [place], [address], 4 11:46:31 Patient TargetsNo targets recorded. Patient Instructions Encounter Date Encounter Id Patient Instructions Last Modified By Organization Details Last Modified Time 03/09/2019 [id number] deciding about using medicines to quit smoking Not available 03/09/2019 17:34:54 Quitting Tobacco : Care Instructions Not available 03/09/2019 17:34:54 BP not at goal o f under 130/80, but close. Recommend BP clinic visit in 2-3 weeks. If not at goal will increase HCTZ to 25mg. Discussed tramadol use, is stable and helping the chronic foot pain. Refills given and if pharmacy not able to honor them, will use CSRP and have him picker and sorter load and unload paper scripts. Wellness visit with labs in 6 months. Will be checking lipids next time. Will consider switching to higher potency statin such as atorvastatin. Not ready to quit smoking. Not available 03/09/2019 17:49:06 Counseling done Patient not ready to quit Contemplating quitting Goal for follow up visit My Health To Do List Not available 03/09/2019 17:36:59 05/11/2019 [id number] Counseling done Goal for follow up visitMy Health To Do List [email or web address] Not available 05/11/2019 15:22:31 09/21/2019 [id number] -After a discussion of treatment and medication options, which included consideration of the best practices in medicine, a medical plan was provided. The patient's opinions and concerns were included in this treatment plan and goal. Things you can do to lower your risk of COVID-19 and help slow the spread of the virus -Get plenty of rest -Eat a healthy diet, with lots of fruits and vegetables -Get 7-8 hours of sleep per night -Make sure you are doing some type of exercise inside your house or outside (not in groups) -Maintain 6 feet distance from friends/ family -Wash your hands frequently for 20 seconds and or use Purell -Do not touch your face, eyes, nose, mouth -Cover your mouth and nose with a tissue when sneezing and coughing or sneeze and cough into your sleeve. Throw the tissue in the trash. Wash your hands afterward. Never cough or sneeze into your hands. -Clean frequently used surfaces (such as doorknobs an counter tops) with a virus-killing disinfectant. -Call with any concerns. -COVID 19 test ordered at [facility] so you can ret to work. -Collect home BP readings and get labs drawn, then we can have HTN mgmt visit in next few weeks. -Counselling for grief support declined. Has good family support. Feels he is managing OK. Not available 09/21/2019 10:40:05 11/25/2019 [id number] high cholesterol lifestyle changes Not available 11/25/2019 16:43:36 -Overdue for labs, will schedule, OK if not fasting. Work schedule makes it difficult to make lab appointments. -Depression can be treated and you can feel better; If you have been prescribed antidepressant medication, take it everyday. If you have trouble with the medication, please contact our office. Try the following to help you feel better: get 30 minutes of exercise on most days of the week. Activity can lift your mood and have a positive impact on your overall health. Take time for pleasurable activities. Spend time with positive people. Practice relaxation and meditation. Balance negative thinking. If you recognize a recurring negative thought, think of a positive thought to take its place. Address problems in an organized way. Go step by step. Ask for help, do not try to tough it out. Please be sure to keep your follow up visits. SSRI medications which are first line for depression and anxiety have possible interaction with tramadol. Will check with Dr Bermudez for advice as to what to try. Then will get back to you via portal. Will be important to have close follow up and stick with medication for best results - suggest 6-12 months. -Wellness vitsit with lab in 6 months. Not available 11/25/2019 16:42:31 My Health To Do List Specific Analgesia Plan: Continue present regimen Specific Goals for next visit increase exerciseThe patient is currently at their goal of safe, stable use of narcotic pain medication to improve their functioning in life. Since the last visit there has been no activity of concern: Patient today is at low risk for abuse of meds. Monitoring will include repeat UDS. Patients current goals of more activity were discussed with patient, unlikelihood of 100% reduction in pain made clear. Patient has read narcotics contract and understands the properties of narcotic medication. Counseling done Patient not ready to quit Goal for follow up visit My Health To Do List Not available 11/25/2019 16:43:09 04/18/2020 [id number] Counseling done Goal for follow up visitMy Health To Do List Not available 04/18/2020 16:52:31 Reason for Referral None Reported. Results Created Date Observation Date Name Description Value Unit Range Abnormal Flag Note LastModifiedBy Organization Detail LastModifiedTime 03/06/2003/08/2019 BMP, serum or plasm a glucose 94 mg/dL 70-100 Not Available [address], [address], 03/08/2019 11:55:16 03/06/20 19 03/08/2019 BMP, serum or plasm a BUN 28 mg/dL 7-18 high Not Available [address], [address], 03/08/2019 11:55:16 03/06/2003/08/2019 BMP, serum or plasm a creatinine 0.9 mg/dL 0.8-1. 3 Not Available [address], [address], 03/08/2019 11:55:16 03/06/2003/08/2019 BMP, serum or plasm a B/C 31.1 ratio Not Available [address], [address], 03/08/2019 11:55:16 03/06/20 19 03/08/2019 BMP, serum or plasm a GFR -non 92.8 mL/mi n Recom chris d GFR by the Natio nal Anjali y Found ation >60 mL/mi n/1.7 3m2 - Karina l <60 mL/mi n/1.7 3m2 - Chron ic Kidne y Disea se <15 mL/mi n/1.7 3m2 - Kidne y Failu re Not Available [address], [address], 03/08/2019 11:55:16 03/06/20 19 03/08/2019 BMP, serum or plasm a GFR - if 112.3 mL/mi n For Afric an Ameri can patie nts: Resul ts Multi plied by 1.21 Not Available [address], [address], 03/08/2019 11:55:16 03/06/20 19 03/08/2019 BMP, serum or plasm a sodium 139 mmol/ L 136-14 5 Not Available [address], [address], 03/08/2019 11:55:16 03/06/2003/08/2019 BMP, serum or plasm a potassium 5.2 mmol/ L 3.5-5. 1 high Not Available [address], [address], 03/08/2019 11:55:16 03/06/2003/08/2019 BMP, serum or plasm a chloride 103 mmol/ L 96-107 Not Available [address], [address], 03/08/2019 11:55:16 03/06/2003/08/2019 BMP, serum or plasm a anion gap 6.8 5.0-15 .0 Not Available [address], [address], 03/08/2019 11:55:16 03/06/2003/08/2019 BMP, serum or plasm a CO2 29 mmol/ L 21-32 Not Available [address], [address], 03/08/2019 11:55:16 03/06/20 19 03/08/2019 BMP, serum or plasm a calcium 9.2 mg/dL 8.5-10 .3 Not Available [facility] [address] [facility], [place], [address], 03/08/2019 11:55:16 09/22/19 20 09/22/2019 SARS CoV 2 RNA (COVI D-19) , QL, patient transporter-P CR, respi rator y speci men covid-19 source NASOPH 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) Not Available [facility] (Outpatient) [address] [place], [address], 09/22/2019 12:58:06 09/22/19 20 09/22/2019 SARS CoV 2 RNA (COVI D-19) , QL, patient transporter-P CR, respi rator y speci men covid testing status Sent to [facility] Not Available [facility] (Outpatient) [address] [place], [address], 09/22/2019 12:58:06 09/22/19 20 09/23/2019 SARS CoV 2 RNA (COVI D-19) , QL, patient transporter-P CR, respi rator y speci men specimen source/descr iption NASOPH ARYNGE AL SWAB Not Available [facility] (Outpatient) [address] [place], [address], 09/23/2019 12:37:10 09/22/19 20 09/23/2019 SARS CoV 2 RNA (COVI D-19) , QL, patient transporter-P CR, respi rator y speci men sars-cov 2 (covid-19) PCR Not Detect ed not detect ed Negat rylee resul ts do not precl ude SARS- CoV-2 infec tion and shoul d not be used as the sole basis for patie nt manag ement decis ions. Negat rylee resul ts must be combi naseem with clini tiffany obser vatio ns, patie nt histo ry, and epide miolo gical infor matio n. Optim um speci men types and timin g for peak viral level s durin g infec tion by SARS- CoV-2 have not been deter mined . Colle ction of multi ple speci mens from the same patie nt may be saniya conde to detec t the virus . This test has been autho rized by the FDA under an Emerg ency Use Autho rizat ion (EUA) for use by autho rized labor atori es. Not Available [facility] (Outpatient) [address] [place] [address], [address], 09/23/2019 12:37:10 12/22/19 20 12/23/2019 BMP, serum or plasm a glucose 74 mg/dL 70-100 Not Available [address], [address], 12/23/2019 10:56:18 12/22/19 20 12/23/2019 BMP, serum or plasm a BUN 31 mg/dL 7-18 high Not Available [address], [address], 12/23/2019 10:56:18 12/22/19 20 12/23/2019 BMP, serum or plasm a creatinine 1.1 mg/dL 0.8-1. 3 Not Available [address], [address], 12/23/2019 10:56:18 12/22/19 20 12/23/2019 BMP, serum or plasm a B/C 28.2 ratio Not Available [address], [address], 12/23/2019 10:56:18 12/22/19 20 12/23/2019 BMP, serum or plasm a GFR -non 73.3 mL/mi n Recom chris d GFR by the Natio nal Kidne y Found ation >60 mL/mi n/1.7 3m2 - Karina l <60 mL/mi n/1.7 3m2 - Chron ic Kidne y Disea se <15 mL/mi n/1.7 3m2 - Kidne y Failu re Not Available [address], [address], 12/23/2019 10:56:18 12/22/19 20 12/23/2019 BMP, serum or plasm a GFR - if 88.7 mL/mi n For Afric an Ameri can patie nts: Resul ts Multi plied by 1.21 Not Available [address], [address], 12/23/2019 10:56:18 12/22/19 20 12/23/2019 BMP, serum or plasm a sodium 140 mmol/ L 136-14 5 Not Available [address], [address], 12/23/2019 10:56:18 12/22/19 20 12/23/2019 BMP, serum or plasm a potassium 4.6 mmol/ L 3.5-5. 1 Not Available [address], [address], 12/23/2019 10:56:18 12/22/19 20 12/23/2019 BMP, serum or plasm a chloride 101 mmol/ L 96-107 Not Available [address], [address], 12/23/2019 10:56:18 12/22/19 20 12/23/2019 BMP, serum or plasm a anion gap 9.8 5.0-15 .0 Not Available [address], [address], 12/23/2019 10:56:18 12/22/19 20 12/23/2019 BMP, serum or plasm a CO2 29 mmol/ L 21-32 Not Available [address], [address], 12/23/2019 10:56:18 12/22/19 20 12/23/2019 BMP, serum or plasm a calcium 9.2 mg/dL 8.5-10 .3 Not Available [address], [address], 12/23/2019 10:56:18 12/22/19 20 12/23/2019 lipid panel , serum cholesterol 135 mg/dL <200 mg/dl Fidelina able 200-2 39 mg/dl Borde rline High >240 mg/dl High Not Available [address], [address], 12/23/2019 10:56:19 12/22/19 20 12/23/2019 lipid panel , serum triglyceride s 238 mg/dL LIPM= Speci men Moder ately Lipem ic. Chem Resul ts may be effec dayana. <150 mg/dL Karina l 150-1 99 mg/dL Borde rline High 200-4 99 mg/dL High >500 mg/dL Very High Not Available [address], [address], 12/23/2019 10:56:19 12/22/19 20 12/23/2019 lipid panel , serum direct HDL 35 mg/dL <40 mg/dl - Major Risk for CHD >60 mg/dl - Negat rylee Risk for CHD Not Available [address], [address], 12/23/2019 10:56:19 12/22/19 20 12/23/2019 LDL, direc t, serum direct LDL 51 mg/dL RISK CATEG ORY LDL GOAL _ CHD or CHD Risk Equiv alent s <100 mg/dl (10-y ear risk >20%) 2+ Risk Facto rs <130 mg/dl (10-y ear risk <= 20%) 0-1 Risk Facto r <160 mg/dl [facility] all peopl e with 0-1 risk facto r have a 10 year risk <10%, thus 10 year risk asses ment in peopl e with 0-1 risk facto r is not neces amaya. Not Available [address], [address], 12/23/2019 10:56:19 04/21/20 20 04/21/2020 SARS CoV 2 RNA (COVI D-19) , QL, patient transporter-P CR, respi rator y speci men covid testing status Specim en receiv ed in analyz ing lab. Not Available [facility] (Outpatient) [address] [place], [address], 04/21/2020 12:40:55 04/21/20 20 04/21/2020 SARS CoV 2 RNA (COVI D-19) , QL, patient transporter-P CR, respi rator y speci men symptomatic? YES Not Available [facility] (Outpatient) [address] [place], [address], 04/21/2020 12:40:55 04/21/20 20 04/22/2020 SARS CoV 2 RNA, QL probe , unspe cifie d speci men specimen source AN SWAB Not Available [facility] (Outpatient) [address] [place], [address], 04/22/2020 00:24:20 04/21/20 20 04/22/2020 SARS CoV 2 RNA, QL probe , unspe cifie d speci men sars-cov 2 (covid-19) PCR NEGATI VE negati ve (NOTE ) 2019- novel Coron aviru s (2019 -nCoV ) not detec dayana by the qRT-P CR assay . Consi gissell testi ng for other respi rator y virus es or re-co llect ing for 2019- nCoV testi ng. Note: Optim um timin g for peak viral level s durin g infec tions cause d by 2019- nCoV have not been deter mined . Colle ction of multi ple speci mens from the same patie nt may be neces amaya to detec t the virus . Metho ds and Limit ation s: This Labor atory Devel oped Test is a high- throu ghput versi on of the CDC 2019- nCoV Realt meron RT-PC R test and has been valid ated in accor dance with the nasrin nce issue d by the Colle ge of Mitra mack Patho logis ts (Jul 22, 2019) and the FDA (Jul 03, 2019) . This test has not been FDA clear ed or appro kobe but has been autho rized by FDA under an EUA for this labor atory . This test is only autho rized for the durat ion of the decla ratio n that circu mstan kenya exist justi fying the autho rizat ion of emerg ency use of in vitro diagn ostic tests for detec tion and/o r diagn osis of COVID -19 under Secti on 564(b )(1) of the Act, 21 U.S.C . 360bb b-3(b )(1), unles s the autho rizat ion is termi nated or revok ed soone r. This test has been autho rized only for the detec tion of nucle ic acid from SARS- CoV-2 , not for any other virus es or patho gens. The test was valid ated for use with respi rator y speci mens obtai naseem via nasop haryn geal, oroph aryng eal, or nasal swabs in liqui d trans port media or salin e. Nasal swabs may also be sent dry. The perfo rmanc e of this test has not been estab lishe d for other speci mens. Speci mens colle cted using other FDA recom chris d Speci men Colle ction Mater ials liste d in the FDA COVID -19 Diagn ostic Techn ologi es commu nicat ion (Zak 2019) are proce ssed with the cavea t that they were not all valid ated for use with this test and the resul t must be inter prete d in this clay xt. Metho d: RNA is isola dayana from respi rator y speci mens in appro kobe media using [employer] X-96 Viral RNA [place] tion Kits (Ther mo Fishe r Scien gary , [id number]), is rever se trans cribe d to cDNA, and subse quent ly ampli fied in the Appli ed [employer] ViiA7 Real- Time PCR Instr ument . This syste m provi lopez quali tativ e detec tion of nucle ic acid from SARS- CoV-2 . For more detai led infor matio n on the test metho ds and limit ation s see https ://co vid-1 9-lucas t-inf o.bro adins titut e.org / Posit rylee resul ts are indic ative of activ e infec tion with SARS- CoV-2 but do not rule out bacte rial infec tion or co-in fecti on with other virus es. The agent detec dayana may not be the defin ite cause of disea se. Negat rylee resul ts do not precl ude SARS- CoV-2 infec tion and shoul d not be used as the sole basis for patie nt manag ement decis ions. False negat rylee resul ts may occur if ampli ficat ion inhib itors are prese nt in the speci men or if inade quate numbe rs of organ isms are prese nt in the speci men due to impro per colle ction , trans eloisa tion, or handl ing. If the virus mutat es in the RT-PC R targe t regio n, SARS- CoV-2 may not be detec dayana or may be detec dayana less predi ctabl y. Inhib itors or other types of inter feren ce may produ ce a false negat rylee resul t. An inter feren ce study evalu ating the effec t of commo n cold medic ation s was not perfo rmed. Not Available [facility] (Outpatient) [address] [place], [address], 04/22/2020 00:24:20 04/26/20 20 04/26/2020 XR, chest OBSERV ATION: CLINIC AL HISTOR Y: Cough. Rhinor stoney. Fever for 3 days. TECHNI QUE: Fronta l view and latera l view of the chest obtain ed. COMPAR DMITRY: None. FINDIN GS: The heart is normal in size and config uratio n. There is no hilar or medias tinal enlarg ement. There is no focal lung consol idatio n or infilt rate. The bony thorax is intact . IMPRES TAINA: No acute diseas e. Electr onical ly signed Callie veras Physic riya: Gerry Lauren ms [facility] (Imaging) [address], [place], [address], 05/02/2020 17:30:20 Result Notes Documentation Provider Name and Address Organization Details Recorded Time Xr, Chest : OBSERVATION: CLINICAL HISTORY: Cough. Rhinorrhea. Fever for 3 days. TECHNIQUE: Frontal view and lateral view of the chest obtained. COMPARISON: None. FINDINGS: The heart is normal in size and configuration. There is no hilar or mediastinal enlargement. There is no focal lung consolidation or infiltrate. The bony thorax is intact. IMPRESSION: No acute disease. Electronically signed Reading Physician: Gino Navarrete MD [address] [place] [address], [phone], [facility] 04/27/2020 18:10:11 Problems Name Problem SNOMED Code Status Onset Date Resolution Date Notes Provider Name and Address Organization Details Recorded Time Pain of shoulder region 41515916 Completed 05/31/2016 Lyric Mills NP [address] [place] [address], [phone] , [facility] 7 17:01:41 Nicotine dependen ce 68175797 Active Not Available [facility] 0 07:51:30 Mixed hyperlip idemia 760932958 Active 2000 Not Available [facility] 0 07:51:31 Essentia l hyperten taina 48973362 Active Not Available [facility] 0 07:51:30 Cellulit is and abscess of face 852325295 Completed 200103/24/2013 Not Available [facility] 3 02:03:46 Benign essentia l hyperten taina 8378508 Completed 200205/31/2016 Lyric Mills NP [address] [place] [address], [address] , [facility] 7 17:02:10 Tobacco user 942033155 Active 2006 Not Available [facility] 0 07:51:30 Dizzines s 479609999 Completed 200303/24/2013 Not Available [facility] 3 02:02:08 Pure hypercho lesterol emia 684129655 Completed 200705/31/2016 Lyric Mills NP [address] [place] [address], [address] , [facility] 7 17:01:15 Atopic dermatit is 25762413 Active 2001 Not Available [facility] 0 07:51:31 Chronic pain syndrome 318591236 Active 2007 chronic foot pain Not Available [facility] 0 07:51:31 Common cold 63910389 Completed 200103/24/2013 Not Available [facility] 3 02:00:26 Allergic rhinitis caused by pollen 45716226 Active 2002 Not Available [facility] 0 07:51:30 Injury of knee 830552592 Completed 200405/31/2016 Lyric Mills NP [address] [place] [address], [address] , [facility] 7 17:01:04 Tenosyno vitis of foot 693787407 Completed 200103/24/2013 Not Available [facility] 3 02:03:34 Dysfunct ion of eustachi an tube 91682877 Completed 200003/24/2013 Not Available [facility] 3 02:03:31 Hyperkal emia 66596601 Completed 05/31/2016 Lyric Mills NP [address] [place] [address], [address] , [facility] 7 17:01:09 Elevated blood-pr essure reading without diagnosi s of hyperten taina 277461115 Completed 200205/31/2016 Lyric Mills NP [address] [place] [address], [address] , [facility] 7 17:02:01 Hyperlip idemia 63719291 Completed 200005/31/2016 Lyric Mills NP [address] [place] [address], [address] , [facility] 7 17:01:49 Low back pain 870463309 Active 2005 Not Available [facility] 0 07:51:30 Alopecia 02798061 Completed 05/31/2016 Lyric Mills NP [address] [place], [address] , [facility] 7 17:02:36 Alopecia areata 71762366 Active Not Available [facility] 0 07:51:30 Pain in limb 48611845 Completed 200703/24/2013 Not Available [facility] 3 02:00:54 Malaise and fatigue 281995972 Completed 200803/24/2013 Not Available [facility] 3 02:00:17 Blood in urine 50605989 Completed 200405/31/2016 Lyric Mills NP [address] [place] [address], [address] , [facility] 7 17:01:28 Problem Notes None recorded. Procedures Surgical History Date Name Laterality Status Provider Name and Address Organization Details Recorded Time 04/18/20 20 Smoking cessation counseling completed Jackie Rosas MA [facility] 04/18/2020 16:52:32 04/18/20 20 Carbon Monoxide Testing completed Jackie Rosas [facility] 04/18/2020 16:52:32 11/25/19 20 Smoking cessation counseling completed Judson Barrios CMA [facility] 11/25/2019 08:54:31 03/09/20 19 Smoking cessation counseling completed Tracy Gill [facility] 03/09/2019 16:56:00 03/09/20 19 Carbon Monoxide Testing completed Tracy Gill [facility] 03/09/2019 16:56:00 08/27/19 19 Smoking cessation counseling completed Meri Winter MA [facility] 08/26/2018 16:09:47 08/27/19 19 Carbon Monoxide Testing completed Meri Winter [facility] 08/26/2018 16:09:47 01/01/20 18 Smoking cessation counseling completed Farhan Celeste [facility] 12/31/2017 16:05:34 06/30/19 18 Smoking cessation counseling completed Lianet Howard LPN [facility] 06/30/2017 16:16:37 06/30/19 18 Carbon Monoxide Testing completed Lianet Howard LPN [facility] 06/30/2017 16:16:37 12/14/19 17 Smoking cessation counseling completed Alicia Stone [facility] 12/13/2016 11:39:26 12/14/19 17 Carbon Monoxide Testing completed Alicia Stone [facility] 12/13/2016 11:39:26 11/19/19 17 [address]: Therapeutic Activities - Direct 1:1 completed Rebekah Vazquez Ms, PT [address] [place], [address], [facility] 11/18/2016 08:54:08 11/19/19 17 Treatment and Advice completed Rebekah Vazquez Ms, PT [address] [place], [address], [facility] 11/18/2016 08:57:25 11/14/19 17 Physical Activity Counselling completed Rebekah Vazquez Ms, PT [address] [place], [address], [facility] 11/13/2016 09:37:50 11/14/19 17 15339: PT Eval Low Complexity completed Rebekah Vazquez Ms, PT [address] [place], [address], [facility] [facility] [place] 11/13/2016 09:37:48 11/14/19 17 Treatment and Advice completed Rebekah Vazquez Ms, PT [address] [place], [address], [facility] [place] 11/13/2016 15:04:49 10/18/19 17 Smoking cessation counseling completed Evelia Croft [facility] 10/17/2016 10:02:02 10/18/19 17 Carbon Monoxide Testing completed Evelia Croft [facility] 10/17/2016 10:02:02 05/31/19 17 Smoking cessation counseling completed Evelia Croft [facility] 05/31/2016 16:16:20 05/31/19 17 Carbon Monoxide Testing completed Evelia Croft [facility] 05/31/2016 16:21:13 12/01/19 16 Smoking cessation counseling completed Nimisha Pearson [facility] 12/01/2015 15:54:58 12/01/19 16 Carbon Monoxide Testing completed Nimisha Pearson [facility] 12/01/2015 16:02:06 05/30/19 16 Smoking cessation counseling completed Lyric Mills NP [address] [place], [address], [facility] [place] 05/30/2015 17:15:04 07/27/19 15 Smoking cessation counseling completed Crista Mak [facility] 07/26/2014 15:55:23 09/01/19 13 Smoking cessation counseling completed Lyric Mills NP [address] [place], [address], [facility] [place] 08/31/2012 14:59:06 Appendectomy completed Not Available [facility] 03/21/2011 06:06:16 Imaging Results None recorded. Procedure Notes None recorded. Medical Equipment None Reported. Allergies Allergen ID Allergen Name Allergen Category Reaction Reaction Severity Criticality Documentation Date Start Date Code Code System Note Provider Name and Address Organization Details Recorded Time 6731 Product containin g penicilli n (product) medicatio n Not available Not available Not available 07/26/2008 95487 8001 SNOMED As A Child Not Available [facility] 1 06:05:20 Medications Name Sig Start Date Stop Date Status Note LastModified by Organization Details LastModified Time silver sulfadiaz ine 1 % topical cream APPLY TO AFFECTED AREA TWICE A DAY EXTERNAL LY active Not Available Not Available No t Available clindamyc in HCl 300 mg capsule TAKE ONE CAPSULE 3 TIMES A DAY FOR 10 DAYS UNTIL FINISHED active Not Available Not Available No t Available lisinopri l 20 mg-hydroc hlorothia zide 12.5 mg tablet TAKE 1 TABLET BY MOUTH EVERY DAY 07/27 completed Not Available Not Available Not Available ibuprofen 800 mg tablet TAKE 1 TABLET EVERY 8 HOURS NEEDED active Not Available Not Available No t Available Darvocet- N 100 100 mg-650 mg tablet Take 2 tablets 3 times a day by oral route for 30 days. 2009 active Not Available Not Available Not Avai lable Nicorette 2 mg gum Chew 1 piece of gum every 2 hours by oral route. 11/30 completed Not Available Not Available Not Available lisinopri l 20 mg tablet TAKE 1 TABLET BY MOUTH EVERY DAY 03/09 completed not taking 03/09/19 sj Not Available Not Available Not Available clindamyc in HCl 150 mg capsule TAKE 4 CAPSULES IMMEDIAT CRISTOPHER THEN TAKE 3 CAPSULES BY MOUTH EVERY 8 HOURS active Not Available Not Available No t Available prochlorp erazine maleate 10 mg tablet 06/30 completed Not Available Not Available Not Available tramadol 50 mg tablet TAKE 2 TABLETS BY MOUTH 3 TIMES A DAY 07/27 completed Not Available Not Available Not Available simvastat in 40 mg tablet TAKE 1 TABLET BY MOUTH EVERY EVENING active Not Available Not Available No t Available Nicoderm CQ 7 mg/24 hr daily transderm al patch Apply 1 patch every day by transder mal route for 14 days. 06/30 completed Not Available Not Available Not Available oxycodone -acetamin ophen 5 mg-325 mg tablet TAKE 1 TABLET BY MOUTH EVERY 4 TO 6 HOURS NEEDED FOR PAIN *WILL CAUSE DROWSINE SS* active Not Available Not Available No t Available flaxseed oil 1,000 mg capsule 07/27 completed TAKE 3 CAPS A DAY Not Available Not Available Not Available Nicoderm CQ 14 mg/24 hr daily transderm al patch Apply 1 patch every day by transder mal route for 14 days. 06/30 completed Not Available Not Available Not Available cephalexi n 500 mg capsule TAKE ONE CAPSULE BY MOUTH EVERY 8 HOURS active Not Available Not Available No t Available simvastat in 20 mg tablet TAKE 1 TABLET BY MOUTH EVERY DAY 07/27 completed Not Available Not Available Not Available nicotine 21 mg/24 hr daily transderm al patch Apply 1 patch every day by transder mal route for 14 days. 06/30 completed Not Available Not Available Not Available bisacodyl 5 mg tablet,de layed release TAKE 4 TABLETS BY MOUTH WITH 8OZ OF WATER ONCE THE DAY PRIOR TO PROCEDUR E 12/13 completed Not Available Not Available Not Available sertralin e 50 mg tablet take one daily. 07/27 completed No longer taking 04/18/20 20-ah Not Available Not Available Not Available doxycycli ne hyclate 100 mg tablet TAKE 1 TABLET(S ) TWICE A DAY BY ORAL ROUTE FOR 1 DAY. 09/20 completed Not Available Not Available Not Available naproxen 500 mg tablet TAKE 1 TABLET BY MOUTH TWICE A DAY 09/20 completed Not Available Not Available Not Available oxycodone 5 mg tablet TAKE 1 TABLET BY MOUTH EVERY 4 TO 6 HOURS NEEDED active Not Available Not Available No t Available neomycin- polymyxin -hydrocor t 3.5 mg-10,000 unit/mL-1 % ear drops,pedrito p INSTILL 4 DROPS INTO AFFECTED EAR(S) BY OTIC ROUTE 3 TIMES PER DAY x 7 days 08/26 completed Stopped 12/31/17 DO Not Available Not Available Not Available cyclobenz aprine 5 mg tablet Take 1 tablet 3 times a day by oral route as needed for 7 days. 09/20 completed Not Available Not Available Not Available Chantix Starting Month Desean 0.5 mg (11)-1 mg (42) tablets in dose pack 2007 active Take 1.00 tabs as directed Not Available Not Available Not Available Fish Oil 1,000 mg capsule 07/27 completed TAKE 3 CAPS A DAY Not Available Not Available Not Available Chantix Continuin g Month Desean 1 mg tablet 07/26 completed Take 1.00 tabs twice daily Not Available Not Available Not Available Glucosami ne Chondroit Complx Advan 750 mg-100 mg-125 mg-1.65 mg tablet 07/27 completed take 2 cap daily Not Available Not Available Not Available Afluria Qd 2019- (36 mos up)(PF)60 mcg (15 mcg x4)/0.5 mL IM syringe ADM 0.5ML IM UTD 04/18 completed Not Available Not Available Not Available Vitals Date Recorded Body height Body mass index (BMI) Body weight Systolic blood pressure Diastolic blood pressure Provider Name and Address Organization Details Last Updated DateTime 05/11/2019 175.26 cm 26.3 kg/m2 33048.44 g 152 mm[Hg] 78 mm[Hg] Amara Oliveira MA [facility] 0 15:21:48 Date Recorded Body height Body mass index (BMI) Body weight Systolic blood pressure Diastolic blood pressure Provider Name and Address Organization Details Last Updated DateTime 11/25/2019 175.26 cm 25.4 kg/m2 73088.89 g 115 mm[Hg] 76 mm[Hg] Judson Barrios CMA [facility] 0 15:54:14 Date Recorded Systolic blood pressure Diastolic blood pressure Provider Name and Address Organization Details Last Updated DateTime 03/09/2019 136 mm[Hg] 86 mm[Hg] Lyric Mills NP [address] [place], [address], [facility] 03/09/2019 17:22:01 Date Recorded Body height Body mass index (BMI) Body weight Heart rate Systolic blood pressure Diastolic blood pressure Provider Name and Address Organization Details Last Updated DateTime 9 175.26 cm 26.8 kg/m2 43758.6 2 g 68 /min 138 mm[Hg] 86 mm[Hg] Tracy Gill [facility] 9 16:58:00 Date Recorded Body height Heart rate Body mass index (BMI) Body weight Systolic blood pressure Diastolic blood pressure Provider Name and Address Organization Details Last Updated DateTime 0 175.26 cm 80 /min 26.3 kg/m2 45920.4 4 g 127 mm[Hg] 76 mm[Hg] [place] [facility] 16:[place]:09 Social History Question Answer Notes LastModified by Organizat ion Details LastModified Time Tobacco Smoking Status Current Every Day Smoker 1/2 PPD-ready to quit Not Available [facility] 09/27/2010 02:08:21 What Is Your Level Of Caffeine Consumption? Moderate 3 Cups Per Day Information not available 07/27/2009 How Much Tobacco Do You Chew? None Never. [email or web address] Information not available 02/20/2009 What Type Of Diet Are You Following? REGULAR 17 Information not available 03/21/2011 Education 12 [email or web address]_[email or web address] 1 17 Information not available 03/21/2011 Are There Any Guns Present In Your Home? No 17 Information not available 03/21/2011 Live Alone Or With Others? With Others 17 Information not available 03/21/2011 CSRP - Narcotics No Information not available 12/18/2016 CSRP Contract Signed And Discussed Yes 12/13/16 Information not available 12/18/2016 Marital Status [email or web address]_[email or web address] [id number] 17 Information not available 03/21/2011 Mosquito Repellent Used Routinely Yes 17 Information not available 03/21/2011 What Was The Date Of Your Most Recent Tobacco Screening? 04/18/2020 Information not available 04/18/2020 How Many Children Do You Have? 2 1990, 1994 Information not available 07/26/2014 What Is Your Current Pack Years? 10-19packyea rs 1/2 PPD. Started Teen Yrs. Quit For Several Yrs. <30 Pack Yrs. Information not available 06/30/2017 Seat Belts Used Routinely Yes 17 Information not available 03/21/2011 Smoke Alarm In Home Yes 17 Information not available 03/21/2011 At What Age Did You Start Smoking Tobacco? 18 17 Information not available 03/21/2011 General Stress Level Medium Work Related Information not available 07/27/2009 Do You Use Sunscreen Routinely? Yes 17 Information not available 03/21/2011 Sex: Unknown Functional Status Question Answer Note LastModified by Organizat ion Details LastModified Time What is your level of alcohol consumption? 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 [place] Information not available 07/27/2009 Mental Status None recorded. Family History Relationship Description Onset Age of this Age Resolved Age Notes LastModified by Organization Details LastModified Time Daughter Asthma Not available 07/26/2014 16:39:04 Mother Hyperlipidem ia Not available 2014 16:39:04 Mother Hypertensive disorder previo usly record ed as Hypert ension Not available 07/26/2014 16:39:04 Mother Arthritis osteoa rthrit is Not available 07/26/2014 16:39:04 Mother Asthma 75 Not available 16:39:04 Mother Dementia Not available 12/31/2017 16:42:40 Father Hyperlipidem ia Not available 2014 16:39:04 Father Hypertensive disorder previo usly record ed as Hypert ension Not available 07/26/2014 16:39:04 Father Diabetes mellitus 60 74 previo usly record ed as Diabet es Not available 07/26/2014 16:39:04 Paternal Aunt Malignant neoplastic disease previo usly record ed as Cancer Not available 07/26/2014 16:39:04 Maternal Aunt Malignant tumor of breast previo usly record ed as Cancer -Breas t Not available 07/26/2014 16:39:04 Notes:only child Medical History Condition Response SKIN Allergic Rhinitis Y Hyperlipidemia Y Hypertension Y Immunizations Vaccine Type Date Status Note Provider Nam e and Address Organization Details Recorded Time Influenza, split virus, trivalent, preservative 1 completed Not Available [facility] 05/22/2019 02:34:57 tetanus toxoid, adsorbed 9 completed Not Available [facility] 12/17/2019 12:10:54 Influenza, split virus, quadrivalent, PF 4 completed Not Available [facility] 05/22/2019 02:26:06 Tdap 5 completed Not Available [facility] 05/22/2019 02:27:11 influenza, unspecified formulation 6 completed Not Available [facility] 12/17/2019 12:10:53 influenza, unspecified formulation 7 completed Not Available [facility] 12/17/2019 12:10:54 Influenza, split virus, quadrivalent, PF 9 completed Not Available [facility] 05/22/2019 02:24:31 influenza, unspecified formulation 8 completed Not Available [facility] 12/17/2019 12:10:54 Influenza, split virus, quadrivalent, preservative 0 completed Shilpi Osorio [facility] 02/14/2020 13:59:02 Influenza, split virus, trivalent, preservative 0 completed Not Available [facility] 05/22/2019 02:26:04 Past Encounters Encounter ID Performer Location Encounter Start Date Encounter Closed Date Diagnosis/Indication Diagnosis SNOMED-CT Code Diagnosis ICD10 Code Diagnosis Note [id number] Melissa Daniels. , [facility] [address] [place] [id number] 05/21/2000 15:45:00 05/25/2008 02:02:29 [id number] Melissa Daniels [address] [place] [id number] 08/01/2000 16:30:00 05/25/2008 02:02:29 [id number] Melissa Daniels [address] [place] [id number] 1 08/29/2000 16:00:00 05/25/2008 02:02:29 [id number] Melissa Daniels [address] [place] [id number] 1 11/19/2000 15:45:00 05/25/2008 02:02:29 [id number] Melissa Daniels [address] [place] [id number] 1 02/10/2001 16:30:00 05/25/2008 02:02:29 [id number] Melissa Daniels [address] [place] [id number] 1 05/14/2001 16:45:00 05/25/2008 02:02:29 [id number] Melissa Daniels [address] [place] [id number] 1 07/21/2001 16:30:00 05/25/2008 02:02:29 [id number] Foreign Asencio PA-C [address] [place] [id number] 09/15/2001 16:15:00 05/25/2008 02:02:29 [id number] Melissa Daniels [address] [place] [id number] 1 11/26/2001 16:09:30 05/25/2008 02:02:29 [id number] Moy Romero III, MD [address] [place] [id number] 12/14/2001 14:36:45 05/25/2008 02:02:29 [id number] Melissa Daniels [address] [place] [id number] 06/03/2002 16:35:06 05/25/2008 02:02:29 [id number] Melissa Daniels [facility], OFFICE [address] [place] [id number] 09/20/2002 16:41:19 05/25/2008 02:02:29 [id number] Melissa Daniels [facility], OFFICE [address] [place] [id number] 1 01/24/2003 16:33:50 01/25/2003 17:33:35 [id number] Melissa Daniels [facility], OFFICE [address] [place] [address] 07/13/2003 16:43:04 07/14/2003 09:39:43 [id number] Melissa Daniels [facility], OFFICE [address] [place] [id number] 1 01/16/2004 16:31:35 01/17/2004 17:47:30 [id number] Melissa Daniels [facility], OFFICE [address] [place] [id number] 1 07/04/2004 16:32:31 07/06/2004 08:45:34 [id number] [facility] [address] [place] [id number] 01/16/2005 17:12:50 01/17/2005 08:12:31 [id number] Melissa Daniels [facility], OFFICE [address] [place] [id number] 1 01/16/2005 16:14:19 01/17/2005 16:30:29 [id number] Melissa Daniels [facility], OFFICE [address] [place] [id number] 1 07/19/2005 16:08:08 07/22/2005 15:42:41 [id number] Melissa Daniels [facility], OFFICE [address] [place] [id number] 12/02/2005 09:28:32 12/03/2005 10:33:19 [id number] [facility] , [facility] [address] [place] [id number] 12/02/2005 10:01:05 12/02/2005 10:40:43 [id number] Melissa Daniels , [facility] [address] [place] [id number] 01/15/2006 16:31:26 01/16/2006 15:43:15 [id number] Melissa Daniels , [facility] [address] [place] [id number] 07/14/2006 16:30:45 07/15/2006 08:09:49 [id number] Melissa Daniels , [facility] [address] [place] [address] [place] [address] 01/12/2007 16:47:29 01/13/2007 08:15:10 [id number] Melissa Daniels , [facility] [address] [place] [address] [place] [id number] 08/03/2007 16:42:06 05/25/2008 02:02:[id number] [facility] - [address] [place] [address] 01/19/2008 06:34:24 01/19/2008 06:37:26 [id number] Melissa Daniels [facility], OFFICE [address] [place] [address] 6 01/22/2008 11:15:35 05/25/2008 02:02:29 [id number] Melissa Daniels [facility], OFFICE [address] [place] [address] 6 04/05/2008 13:46:27 05/25/2008 02:02:[id number] [facility] - [address] [place] [address] 04/05/2008 14:40:38 04/05/2008 14:43:02 [id number] Melissa Daniels [facility], OFFICE [address] [place] [id number] 6 07/26/2008 15:45:29 07/28/2008 09:00:13 [id number] Melissa Daniels [facility], OFF[address] [place] [address] 01/31/2009 15:41:47 02/03/2009 13:47:20 [id number] Lyric Mills NP FP, [facility], [facility] [facility] [place] [address] 02/20/2009 16:21:45 02/22/2009 14:49:[id number] [facility] - [facility] [address] [facility] [place] [place] [facility] [address] 01/30/2009 06:57:43 01/30/2009 07:05:28 [id number] Lyric Mills NP FP, [facility], OFF[address] [facility] [place] [place] [address] 07/27/2009 15:57:33 07/31/2009 15:37:09 [id number] Lyric Mills NP FP, [facility], OFF[address] [facility] [place] [place] [address] 02/19/2010 16:12:26 02/21/2010 14:33:26 [id number] Lyric Mills NP FP, [facility], OFF[address] [facility] [place] [place] [address] 04/26/2010 15:30:09 05/02/2010 11:31:49 [id number] Kapil Jacobo, MIC Podiatry, [address] [place] [address] 05/08/2010 09:30:37 05/21/2010 08:10:52 [id number] Lyric Mills NP FP, [facility], OFF[address] [facility] [place] [address] 05/10/2010 16:16:47 05/17/2010 08:14:27 [id number] Lyric Mills NP FP, [facility], OFF[address] [facility] [place] [address] 08/14/2010 16:15:03 08/17/2010 13:25:40 [id number] Lyric Mills NP FP, C, OFF[address] [place] [facility] [address] 03/14/2011 15:22:36 03/14/2011 16:23:37 [id number] Lyric Mills NP FP, C, OFFICE [address] [place] [address] 6 05/02/2011 10:14:30 05/02/2011 12:13:08 [id number] Lyric Mills NP FP, C, OFFICE [address] [place] [address] 6 08/31/2012 14:33:07 08/31/2012 16:13:24 [id number] Lyric Mills NP FP, C, OFFICE [address] [place] [address] 6 02/23/2013 15:43:28 02/23/2013 17:33:34 Adult health examination 309674289 see Risk Assessment and Lifestyle Change Counseling section above Counseling [id number] Low back pain 556353110 Influenza vaccine needed 1420810517 106 Hyperlipidemia 05894436 Tobacco user 312635528 [id number] Jessica Nieves MD FP, C, OFFICE [address] [place] [address] 6 07/19/2013 15:24:56 07/19/2013 18:39:02 Pain of shoulder region 52660203 [id number] Jessica Nieves MD FP, C, OFFICE [address] [place] [address] 6 08/10/2013 16:11:30 08/10/2013 18:39:24 Pain of shoulder region 06069538 Benign ess ential hypertension 3166749 Hyperlipidemia 27836974 [id number] Jessica Nieves MD FP, C, OFFICE [address] [place] [address] 6 02/18/2014 16:09:27 02/18/2014 16:12:30 Essential hypertension 57588282 BP at goal. Advised to check BP away from office and bring record to next appt along with any home BP equipment. Counseled re low sodium diet, regular exercise, importance of taking meds as directed. RTC 6mos. Influenza vaccine needed [id number] 106 Chronic pain syndrome 002956240 [id number] MD MEAGAN Hammer, C, OFFICE [address] [place] [id number] 6 07/26/2014 15:44:55 07/26/2014 16:42:51 Adult health examination 987749410 see Risk Assessment and Lifestyle Change Counseling section above Counseling [id number] Benign ess ential hypertension 3802390 Blood pressure at goal Chronic pain 19339110 Mixed hyperlipidemia 115404693 Cholestero l is at goal Continue to work on diet and exercise as discussed Tobacco user 714906408 Chronic pain syndrome 627213632 Family his tory of cancer of colon 869487389 [id number] Jessica Nieves MD , [facility], OFFICE [address] [place] [address] 6 02/17/2015 15:47:06 02/17/2015 16:21:58 Screening for disorder 496360834 Z72.89 Benign ess ential hypertension 3693639 I10 Blood pressure at goal Mixed hyperlipidemia 267 538392 E78.2 Cholestero l is at goal Continue to work on diet and exercise as discussed Administra tion of diphtheria, pertussis, and tetanus vaccine 568924558 Z23 Hyperkalemia 79279480 E8 7.5 [id number] Lyric Mills NP , [facility], OFFICE [address] [place] [address] 6 05/30/2015 16:13:09 05/30/2015 16:59:04 Benign essential hypertension 7401593 I10 bp at goal Tobacco user 157119846 Z 72.0 Nicotine dependence 5629 4008 Z87.155 [id number] Jessica Nieves MD , [facility], OFFICE [address] [place] [address] 6 12/01/2015 15:52:33 12/22/2015 09:53:53 Adult health examination 775807574 Z00.00 see Risk Assessment and Lifestyle Change Counseling section above Counseling 389399633 Z71 .9 Benign ess ential hypertension 9910352 I10 Blood pressure at goal Mixed hyperlipidemia 267 660465 E78.2 Cigarette smoker 3175121 7 F17.210 Tobacco user 249380948 Z 72.0 Screening for malignant neoplasm of colon 325528969 Z12.11 Referral for a DIRECT booked colonoscop y. This patient is a healthy ASA Class 1 or 2 patient (only mild systemic disease), or a STABLE, well controlled insulin dependent diabetic. They do not have serious cardiac disease ie AL/angiopl asty within 1 year, symptomati c CHF; renal failure with CKD 4 or 5; take Coumadin, Plavix, Aggrenox, etc. Chronic pain syndrome 37 0475841 G89.4 [id number] Jessica Nieves MD FP, [facility], OFFICE [address] [place] [id number] 6 05/31/2016 16:12:52 05/31/2016 17:16:43 Benign essential hypertension 0819428 I10 Blood pressure at goal Mixed hyperlipidemia 267 081718 E78.2 Cholestero l is at goal Continue to work on diet and exercise as discussed Cigarette smoker 1461620 7 F17.210 Tobacco user 044219795 Z 72.0 Chronic pain syndrome 37 0950809 G89.4 foot pain after bunion surgery [id number] Jessica Nieves MD , [facility], OFFICE [address] [place] [address] 6 10/17/2016 09:56:17 10/17/2016 11:32:00 Cigarette smoker 64475433 F17.210 Tobacco user 590882820 Z 72.0 Pain in lower limb 04393 006 M79.237 [id number] Rebekah Vazquez Ms, PT Physical Therapy, [address] [address] 11/13/2016 07:52:58 11/13/2016 16:00:27 Pain in lower limb 93454718 M79.540 [id number] Rebekah Vazquez Ms, PT Physical Therapy, [address] [address] 11/18/2016 08:28:22 11/18/2016 10:13:56 Pain in lower limb 23895896 M79.314 [id number] Jessica Nieves MD , [facility], OFFICE [address] [place] [id number] 6 12/13/2016 11:29:39 12/13/2016 14:13:27 Adult health examination 427849986 Z00.00 see Risk Assessment and Lifestyle Change Counseling section above Counseling 214513668 Z71 .9 Cigarette smoker 3919744 7 F17.210 Tobacco user 536542822 Z 72.0 Mixed hyperlipidemia 267 275409 E78.2 Benign ess ential hypertension 8104712 I10 Blood pressure at goal Chronic pain syndrome 37 1913883 G89.4 foot pain after bunion surgery [id number] Jessica Nieves MD , [facility], OFFICE [address] [place] [address] 6 06/30/2017 16:14:22 07/07/2017 15:59:20 Benign essential hypertension 0308726 I10 Blood pressure at goal with lisinopril 20mg Mixed hyperlipidemia 267 866368 E78.2 Cigarette smoker 0937215 7 F17.210 Tobacco user 557861900 Z 72.0 Chronic pain 62381135 R5 2 Chronic pain syndrome 37 9279938 G89.4 foot pain after bunion surgery Caregiver role strain 12 3011541 Z73.3 Mother with dementia [id number] Jessica Nieves MD , [facility], OFFICE [address] [place] [address] 12/26/2017 17:26:48 12/29/2017 13:40:45 Acute otitis externa [id number] H60.369 [id number] Jessica Nieves MD , [facility], OFFICE [address] [place] [address] [phone] 6 12/31/2017 16:02:59 12/31/2017 16:53:51 Cigarette smoker [id number] F17.210 Tobacco user 663883869 Z 72.0 Chronic pain syndrome 37 8274654 G89.4 foot pain after bunion surgery Essential hypertension 24891707 I10 BP at goal on lisinopril 20mg. Goal is <140/90 Mixed hyperlipidemia 267 191640 E78.2 Lipids at goal on simvastati n 20mg and fish oil [id number] Jessica Nieves MD , [facility], OFFICE [address] [place] [address] [phone] 6 08/26/2018 16:02:23 08/27/2018 07:47:20 Mixed hyperlipidemia 556200211 E78.2 Cholestero l is at goal Continue to work on diet and exercise as discussed Chronic pain 45935879 R5 2 Opioid dependence 400529 00 F11.20 Cigarette smoker 8886640 7 F17.210 Tobacco user 795997226 Z 72.0 Essential hypertension 17168199 I10 Hyperkalemia 96563279 E8 7.5 [id number] Jessica Nieves MD , [facility], OFFICE [address] [place] [address] [phone] 6 03/09/2019 16:41:35 03/10/2019 15:16:00 Cigarette smoker 59440108 F17.210 Tobacco user 957845770 Z 72.0 Active or passive immunization 490145427 Z23 Chronic pain syndrome 37 5735703 G89.4 foot pain after bunion surgery Essential hypertension 78685994 I10 [id number] Maria R Estrada NP FP, [facility], OFFICE [address] [place] [address] 05/11/2019 15:15:10 05/11/2019 17:24:09 Essential hypertension 77754566 I10 Follow up with PCP - likely high due to current pain Low back pain 315133534 M54.5 exercise/s tretching instructio n given, alternate heat / ice, advised to stand on cushion at work, try not standing in the same position. Follow PRN [id number] Yanick Navarrete MD , [facility], OFFICE [address] [place] [address] [phone] 6 09/21/2019 10:03:43 09/21/2019 10:48:44 Suspected COVID-19 230456398 Z03.818 Essential hypertension 42042380 I10 Normal grief reaction 27 2874243 F43.20 [id number] Yanick Navarrete MD , [facility], OFFICE [address] [place] [address] [phone] 6 11/25/2019 15:46:54 11/29/2019 14:14:17 Essential hypertension 89880628 I10 Mixed hyperlipidemia 267 561653 E78.2 Cholestero l is at goal Continue to work on diet and exercise as discussed Chronic pain syndrome 37 8712613 G89.4 foot pain after bunion surgery Chronic pain 28723205 R5 2 Opioid dependence 823977 00 F11.20 Tobacco user 981897284 Z 72.0 Depressive disorder 3548 9007 F32.9 [id number] Yanick Navarrete MD , [facility], OFFICE [address] [place] [address] [phone] 6 04/18/2020 16:49:35 04/20/2020 16:08:13 Tobacco user 938053482 Z72.0 Wants to quit, not quite there yet-contem plative phase. Discussed smoking and resp illness correlatio n Cough 29110027 R05 get covid test. and then get x-ray. go to ED if SOB. Health Concerns Section Related Observation LastModified by Organization [place] LastModified Time None Recorded Concern Status LastModified by Organization Details LastModified Time None Recorded Advance Directives Directive None Recorded Payers Insurance Date Sequence Insurance Name Policy Number Policy Peters Covered Member ID Peters Member ID Guarantor Name 07/28/2023 1 [facility] [id number] 2 Mercedes Nash [id number] Ruben Nash Jr 12/13/2016 1 [facility] [id number] 1 Mercedes Nash [id number] Ruben Nash Jr 11/23/2015 1 [facility] Mercedes Nash [id number] Ruben Nash Jr 12/02/2005 1 [facility] Mercedes Nash Jr [id number] Ruben Nash Jr 11/28/2015 1 [facility] Mercedes Charity [id number] Ruben Nash Jr Notes Date Note Type Note Provider Name and Address Organization Details Recorded Time 9 text/html VMG HypertensionReported bypatient.Duration:AHA 10-year risk (15%, is on simvastatin) Control:BP Goal less than (130/90); Treated with medications; Patient understands medications are to lower blood pressure Compliance:Compliant with medications; Compliant with follow-up visits Barriers to Carehas no time; under stress 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
[2024-11-02 18:06] LABS: MANUAL DIFF FLAG NO
[2024-11-02 18:12] LABS: Hematocrit 35.4 % (42.0-52.0); Hemoglobin 12.0 g/dl (14.0-18.0); Imm Gran Abs Auto 0.02 X10*3/uL (0.00-0.03); Imm Gran Pct Auto 0.3 % (0.0-0.4); Lymphocytes Absolute Auto 2.0 X10*3/uL (1.2-4.9); Mean Corpuscular HGB Conc 33.9 g/dl (31.0-36.0); Mean Corpuscular Hemoglobin 32.1 pg (27.0-33.0); Mean Corpuscular Volume 94.7 fL (80.0-98.0); NRBC Abs Auto 0.000 X10*3/uL (0.0-0.012); NRBC Pct Auto 0.0 /100WBC (0.0-0.2); Platelet Count 168 X10*3/uL (160-400); Red Blood Count 3.74 X10*6/uL (4.60-5.80); White Blood Count 6.3 X10*3/uL (4.8-10.8)
[2024-11-02 18:44] LABS: Alanine Aminotransferase 24 U/L (0-40); Albumin Level 4.3 g/dL (3.5-5.0); Alkaline Phosphatase 75 U/L (39-117); Anion Gap 12 (12-20); Aspartate Amino Transferase 34 U/L (5-37); Blood Urea Nitrogen 29 mg/dL (9-16); Calcium 9.3 mg/dL (8.4-10.2); Carbon Dioxide 25 mmol/L (22-29); Chloride 105 mmol/L (96-108); Estimated Glomerular Filt Rate > 60; Potassium 4.0 mmol/L (3.3-5.1); Sodium 138 mmol/L (135-145); Total Protein 7.6 g/dL (6.5-8.0)
[2024-11-02 18:52] LABS: Prostate Specific Antigen 1.38 ng/mL (<0.05-4.0)
[2024-11-02 18:58] LABS: Thyroid Stimulating Hormone 2.51 uIU/mL (0.32-4.0)
[2024-11-02 19:07] LABS: Folate 7.8 ng/mL (> or = 4.0); Vitamin B12 883 pg/mL (200-900)
== END 2024-11-02 16:08 | disposition home or self-care (01) ==
LOC: HO.MANLDS 16:07
PROVIDERS: Visit Provider Internal Medicine
DX: Z12.5 Encounter for screening for malignant neoplasm of prostate (principal); R53.81 Other malaise; R53.83 Other fatigue
CPT/HCPCS: 36415; 80053; 82306; 82607; 82746; 84153; 84403; 84443; 85025; 85652

== ENCOUNTER 2025-04-26 14:15 | Outpatient (REF) | payer OTHER, SELFPAY ==
--- OUTSIDE RECORDS SUMMARY | 2025-04-26 15:34 | XMS_ITS | Encounter Summary ---
Author Organization [facility] Address [address] [facility] [address] [place] [address] Phone Care Team Providers Care Production Line Name Role Phone Bo Bee DO Primary Care Provider [phone] Reason for Referral * MRI/CAT Scan - Closed Specialty Diagnoses / Procedures Referred By Jeet t Referred To Contact Radiology Diagnoses Cellulitis of left lower limb Procedures NM Bone Flow 3 Phase NM Bone Scan Nilda Lennon PA [address] [facility] [place] [address] Phone: tel: fax: Referral ID Status Reason Start Date Expiration Date Visits Re quested Visits Authorized [id number] Closed 05/03/2022 05/03/2023 2 2 Encounter Details Date Type Department Care Team (Late st Contact Info) Description 05/22/2022 Ancillary Orders Virtual Department [address] [place] [address] Nilda Lennon PA [address] [facility] [place] [address] Cellulitis of left lower limb Social History Tobacco Use Types Packs/Day Years Used Date Smoking Tobacco: Every Day Cigarettes Smokeless Tobacco: Never Alcohol Use Standard Drinks/Week Comments Yes 0 (1 standard drink = 0.6 oz pur e alcohol) 1-2 per week Intimate Partner Violence Answer Date R ecorded Are you denied basic needs s uch as food, clothing, or medical care? No 04/22/2022 In the past 12 months have y ou been in a relationship with a person who hurts, threatens, or tries to control you? No 04/22/2022 Are you denied basic needs s uch as food, clothing, or medical care? No 04/22/2022 In the past 12 months have y ou been in a relationship with a person who hurts, threatens, or tries to control you? No 04/22/2022 Sex and Gender Information Value Date Recorded Sex Assigned at Male 04/22/2022 11:32 AM EST Legal Sex Male 9:44 PM EDT Gender Identity Male 04/22/2022 11:32 AM EST Sexual Orientation Not on file documented as of this encounter Plan of Treatment Not on file documented as of this encounter Results * NM Bone Flow 3 Phase (05/22/2022 2:26 PM EST) Anatomical Region Laterality Modality Shoulder Right, Shoulder Lef t, Arm Left, Arm Right, Elbow Left, Elbow Right, Forearm Left, Forearm Right, Wrist Right, Wrist Left, Hand Left, Hand Right, Hip Left, Hip Right, Hip Bilateral, Thigh Left, Thigh Right, Knee Left, Knee Right, Knee Bilateral, Leg Left, Leg Right, Ankle Left, Ankle Right, Foot Left, Foot Right, Pelvis Nucle ar Medicine 05/23/2022 9:45 AM EST Impressions 05/23/2022 9:52 AM EST Intense increased three-phase tracer uptake in the left midfoot which would be consistent with osteomyelitis although no corresponding radiographic findings of bone infection were identified radiographically on 04/22/2022. Follow-up MRI could be obtained for further evaluation if felt to be clinically warranted. Narrative 05/23/2022 9:52 AM EST NM BONE FLOW 3 PHASE Three phase radionuclide bone scan: COMPARISON: 04/22/2022 left foot radiographs TECHNIQUE: 23.7 mCi technetium 99m MDP was injected. Immediately after injection, perfusion images of the ankles and feet were obtained, followed by equilibrium images one minute after injection. More than two hours after injection, delayed static images of the area were obtained. FINDINGS: Following intravenous administration of radiopharmaceutical an plantar radionuclide angiogram of both feet was obtained revealing hyperperfusion to the left lower leg, hindfoot, and particularly midfoot as compared with the right. Immediate blood pool images disclose intense excess tracer uptake in the left midfoot without abnormal soft tissue activity demonstrated on the right. Multiple delayed skeletal images disclose extremely intense uptake in the left midfoot which correlates with the location of post-surgical and hypertrophic change on the radiographs. There are few zones of mildly increased tracer uptake in the digits, particularly the right first ray, which have an intensity and distribution suggesting arthritic change. Procedure Note Alexy Taylor MD - 05/23/2022 NM BONE FLOW 3 PHASE Three phase radionuclide bone scan: COMPARISON: 04/22/2022 left foot radiographs TECHNIQUE: 23.7 mCi technetium 99m MDP was injected. Immediately after injection, perfusion images of the ankles and feet wereobtained, followed by equilibrium images one minute after injection. Morethan two hours after injection, delayed static images of the area wereobtained. FINDINGS: Following intravenous administration of radiopharmaceutical an plantarradionuclide angiogram of both feet was obtained revealing hyperperfusionto the left lower leg, hindfoot, and particularly midfoot as compared withthe right. Immediate blood pool images disclose intense excess traceruptake in the left midfoot without abnormal soft tissue activitydemonstrated on the right. Multiple delayed skeletal images discloseextremely intense uptake in the left midfoot which correlates with thelocation of post-surgical and hypertrophic change on the radiographs.There are few zones of mildly increased tracer uptake in the digits,particularly the right first ray, which have an intensity and distributionsuggesting arthritic change. IMPRESSION: Intense increased three-phase tracer uptake in the left midfoot whichwould be consistent with osteomyelitis although no correspondingradiographic findings of bone infection were identified radiographicallyon 04/22/2022. Follow-up MRI could be obtained for further evaluation iffelt to be clinically warranted. Nilda NAVARRO Tamar NM BONE SCAN Final Resu lt documented in this encounter Visit Diagnoses Diagnosis Cellulitis of left lower limb Cellulitis of left lower limb documented in this encounter Care Teams Production Line Relationship Specialty Start Date End Date Bo Bee DO [email or web address] PCP - General Internal Medicine 09/20/20 documented as of this encounter Additional Source Comments The information contained in this document represents components of the legal health record. It is not the complete legal health record.[facility]
--- OUTSIDE RECORDS SUMMARY | 2025-04-26 15:35 | XMS_ITS | Encounter Summary ---
Author Organization [facility] Address [address] [facility] [address] [place] [address] Phone Care Team Providers Care Research Hydraulic Engineer Name Role Phone Chance Moreno MD Unavailable [phone] Jostin Rios MD Unavailable Lyric Mills [employer] Unavailable [phone] Lyric Mills [employer] Primary Care Provider [phone] Bo Bee DO Primary Care Provider [phone] Encounter Details Date Type Department Care Team (Late st Contact Info) Description 04/19/2020 Transcribe Orders Virtual Department [address] [place] [address] Yanick Navarrete MD [address] [place] [id number] [email or web address] Fever, unspecified (Primary Dx); Cough Social History Tobacco Use Types Packs/Day Years Used Date Smoking Tobacco: Never Assessed Sex and Gender Information Value Date Recorded Sex Assigned at Male 04/22/2022 11:32 AM EST Legal Sex Male 9:44 PM EDT Gender Identity Male 04/22/2022 11:32 AM EST Sexual Orientation Not on file documented as of this encounter Plan of Treatment Not on file documented as of this encounter Results * COVID-19 PCR Order (04/21/2020 8:21 AM EST) COVID Testing Status Specimen received in analyzing lab. [facility] Symptomatic? YES [facility] Other 04/21/2020 8:21 AM EST 04/21/2020 10:20 AM EST us Yanick Navarrete MD LAB GENERAL ORDERABLES Rosita trung Result [facility] [address] [place] [address] [facility] [address] [place] [address] documented in this encounter Visit Diagnoses Diagnosis Fever, unspecified- Primary Cough documented in this encounter Additional Health Concerns Infection Onset Date Last Indicated Resolved Time CoV-Risk 04/19/2020 04/21/2020 05/03/2020 1:25 AM EST documented as of this encounter Care Teams Research Hydraulic Engineer Relationship Specialty Start Date End Date Lyric Mills NP [address] [place] [address] PCP - General Nurse Practitioner 09/21/19 09/19/20 Bo Bee DO [address] [place] [address] [email or web address] PCP - General Internal Medicine 09/20/20 Chance Moreno MD [address] [place] [address] [address] -[address] [place] [address] Historical LMR Provider 02/17/17 2 Jostin Rios MD [address] [place] [address] [email or web address] Historical LMR Provider 02/17/17 05/12/21 Lyric Mills NP [address] [place] [address] Historical LMR Provider 02/17/17 documented as of this encounter Additional Source Comments The information contained in this document represents components of the legal health record. It is not the complete legal health record.[facility]
--- OUTSIDE RECORDS SUMMARY | 2025-04-26 15:35 | XMS_ITS | Encounter Summary ---
Author Organization [facility] Address [address] [address] Phone Care Team Providers Care Private Sector Executive Name Role Phone Bo Bee DO Primary Care Provider [phone] Reason for Referral * Outpatient Procedure - Closed Specialty Diagnoses / Procedures Referred By Jeet jorge Referred To Contact Radiology Diagnoses Bilateral leg pain Procedures US Lower Extremity Arteries (KATHIE) Physio Complete Bilat US Lower Extremity Arteries Duplex Complete (Bilateral) Bo Bee DO Phone: tel: fax: mailto: Referral ID Status Reason Start Date Expiration Date Visits Re quested Visits Authorized [id number] Closed 09/08/2023 11/02/2023 1 1 Encounter Details Date Type Department Care Team (Late st Contact Info) Description 10/07/2023 Ancillary Orders Virtual Department [address] [place] [address] Bo Bee DO [address] [facility] [place] [address] Bilateral leg pain (Primary Dx) Social History Tobacco Use Types Packs/Day Years Used Date Smoking Tobacco: Every Day Cigarettes Smokeless Tobacco: Never Alcohol Use Standard Drinks/Week Comments Yes 0 (1 standard drink = 0.6 oz pur e alcohol) 1-2 per week Education Answer Date Recorded Are you interested in more education? Not on simone e 08/30/2022 Are you concerned about learning? Not on file 08/30/2022 No 08/30/2022 No 08/30/2022 Digital Access Answer Date Recorded No 09/28/2022 No 09/28/2022 Reliable internet access at home? Not on file 09/28/2022 Device with a working camera? Not on file Intimate Partner Violence Answer Date R ecorded [...] documented as of this encounter Results * US Lower Extremity Arteries (KATHIE) Physio Complete Bilat (10/07/2023 1:39 PM EDT) Anatomical Region Laterality Modality Ultrasound 10/10/2023 3:30 PM EDT Impressions 10/10/2023 5:36 PM EDT Normal bilateral ABIs. Narrative 10/10/2023 5:36 PM EDT History: Peripheral vascular disease. Current smoker with hypertension and hyperlipidemia. Previous vascular surgery. Noninvasive assessment of arterial flow with KATHIE requested. TECHNIQUE: Bilateral brachial pressures and Doppler interrogation and calculation of systolic pressures of the posterior tibial and dorsalis pedis artery bilaterally. Calculation of ankle brachial indices. FINDINGS: Brachial pressures: Right: 122 mm Hg Left: 113 mm Hg Systolic pressures posterior tibial artery and dorsalis pedis artery: Right: 132/130 mm Hg, KATHIE is 1.08 Left: 128/125 mm Hg KATHIE is 1.05 Procedure Note Bob Meyer MD - 10/10/2023 History: Peripheral vascular disease. Current smoker with hypertension andhyperlipidemia. Previous vascular surgery. Noninvasive assessment ofarterial flow with KATHIE requested. TECHNIQUE: Bilateral brachial pressures and Doppler interrogation andcalculation of systolic pressures of the posterior tibial and dorsalispedis artery bilaterally. Calculation of ankle brachial indices. FINDINGS: Brachial pressures: Right: 122 mm Hg Left: 113 mm Hg Systolic pressures posterior tibial artery and dorsalis pedis artery: Right: 132/130 mm Hg, KATHIE is 1.08 Left: 128/125 mm Hg KATHIE is 1.05 IMPRESSION: Normal bilateral ABIs. us Bo Bee DO CV US VASCULAR Final Result documented in this encounter Visit Diagnoses Diagnosis Bilateral leg pain Pain in soft tissues of limb Bilateral leg pain- Primary Pain in soft tissues of limb documented in this encounter Care Teams Private Sector Executive Relationship Specialty Start Date End Date Bo Bee DO [email or web address] PCP - General Internal Medicine 09/20/20 documented as of this encounter Additional Source Comments The information contained in this document represents components of the legal health record. It is not the complete legal health record.[facility]
--- OUTSIDE RECORDS SUMMARY | 2025-04-26 15:35 | XMS_ITS | Data Portability ---
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) [facility] MODERATE MUST MEET 2 OUT OF 3 [...] EACH ELEMENT THAT IS COVERED Not available 06/07/2024 16:22:14 10/12/2024 10/12/2024 [id number] [place] [address] (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) [facility] MODERATE MUST MEET 2 OUT OF 3 [...] THAT IS COVERED Not available 10/12/2024 16:30:32 11/09/2024 11/09/2024 [address] [place] [address] (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 Lab uric acid, serum or plasma 2024 [facility], [address] [place] [address], [address], 16:37:01 testostero ne, total, serum 2024 [facility], [address] [place] [address], [address], 16:37:01 shbg (sex hormone-bi nding globulin), serum 2024 [facility], [address] [place] [address], [address], 5 16:37:01 CMP, serum or plasma 2024 [facility], [address] [place] [address], [address], 5 16:37:01 vitamin B12 + folate, serum or blood 2024 [facility], [address] [place] [address], [address], 5 16:37:01 vitamin D, 25-hydroxy , total, serum 2024 [facility], [address] [place] [address], [address], 5 16:37:01 TSH, serum or plasma 2024 [facility], [address] [place] [address], [address], 5 16:37:01 CBC 2024 025 [facility], [address] [place] [address], [address], 5 16:37:01 testostero ne, total, serum 2024 025 [facility], [address] [place] [address], [address], 5 11:40:24 vitamin B12 + folate, serum or blood 2024 025 [facility], [address] [place] [address], [address], 5 11:24:53 vitamin D, 25-hydroxy , total, serum 2024 025 [facility], [address] [place] [address], [address], 5 16:36:46 CBC 2024 025 [facility], [address] [place] [address], [address], 5 16:36:45 CMP, serum or plasma 2024 025 [facility], [address] [place] [address], [address], 5 12:50:42 ESR (erythrocy te sedimentat ion rate), blood 2024 025 [facility], [address] [place] [address], [address], 5 16:36:45 TSH, serum or plasma 2024 025 [facility], [address] [place] [address], [address], 16:36:36 PSA, serum or plasma 2024 [facility], [address] [facility], [place], [address], 16:36:36 Referral None recorded. Procedures None recorded. Surgeries None recorded. Imaging MRI, hip, w/o contrast 2024 025 [email or web address], [address], [place], [address], 15:02:14 MRI, lumbar spine, w/o contrast 2024 025 [email or web address] [facility], [address], [place], [address], 09:07:47 Medication Orders testostero ne 1 % (50 mg/5 gram) transderma l gel packet [address] [id number], [address] [place], [address], 16:28:42 Patient TargetsNo targets recorded. Patient Instructions Encounter Date Encounter Id Patient Instructions Last Modified By Organization Details Last Modified Time 06/07/2024 [id number] high blood pressure: care instructions Not available 06/07/2024 16:24:02 learning about high blood pressure Not available 06/07/2024 16:24:02 10/12/2024 [id number] fatigue: care instructions Not available 10/12/2024 16:30:34 04/25/2025 [id number] gout: care instructions Not available 04/25/2025 16:28:40 high blood pressure: care instructions Not available 04/25/2025 16:28:40 learning about high blood pressure Not available 04/25/2025 16:28:40 Reason for Referral None Reported. Results Created Date Observation Date Name Description Value Unit Range Abnormal Flag Note LastModifiedBy Organization Detail LastModifiedTime 05/25/19 25 05/21/2024 MRI, lumba r spine , w/o contr ast No observ ation record ed. [facility] [address] [facility] [address], [place], [address], 06/07/2024 16:14:50 Result Notes None recorded. Problems Name Problem SNOMED Code Status Onset Date Resolution Date Notes Provider Name and Address Organization Details Recorded Time Mixed hyperlip idemia 054657486 Active [address] [facility] 4 11:08:04 Tobacco user 170891877 Active 2020 Rachel clemente [facility] 4 11:08:04 Chronic pain syndrome 372714522 Active 2020 tramadol Rachel clemente [facility] 4 11:08:04 [facility] hyperten gumaro 38509629 Active 2020 Rachel clemente [facility] 4 11:08:04 Alopecia areata 84588673 [facility] Low back pain 993541260 [facility] 11:[facility]04 Allergic rhinitis 24862850 Active 2020 pollen Rachel clemente [facility] 4 11:08:04 Position al vertigo 628602287 Active 2021 Rachel clemente [facility] 4 11:08:04 Neck pain 86463871 [facility] 11:[facility] COVID-19 775183292 Active 2021 Rachel clemente [facility] 4 11:08:14 Gout 67959566 Active 2021 Rachel Walker null, [facility] 4 11:08:04 Cellulit is of left foot 45215216305 944462 Active 2021 Rachel Walker null, [facility] 4 11:08:14 Nausea 034140284 Active 2021 Rachelrenetta Walker null, [facility] 4 11:08:14 Pain in left foot 46411203041 9107 Active 2021 Rachel Walker null, [facility] 4 11:08:04 Neuropat hy 951499280 Active 2021 Rachelrenetta Walker null, [facility] 4 11:08:04 Osteomye litis of left foot 44545036337 27150 Active 2022 Rachel Walker null, [facility] 4 11:08:04 Palpitat ions 42172405 Active 2022 Rachel Walker null, [facility] 4 11:08:04 Degenera tion of lumbar interver tebral disc 96896791 Active 2022 Rachel Walker null, [facility] 4 11:08:04 Weakness of left lower limb Active 2022 Rachel Walker null, [facility] 4 11:08:04 Lumbar spondylo sis 078490121 Active 2022 Rachel Walker null, [facility] 4 11:08:04 Spasm 33197877 Active 2022 Rachel Walker null, [facility] 4 11:08:04 Pain in lower limb 48822053 Active 2022 Rachel Walker null, [facility] 4 11:08:04 Nausea and vomiting 34813433 Active 2022 Rachel Walker null, [facility] 4 11:08:14 Rhabdomy olysis 630143713 [facility] [place] 4 11:08:04 Pain in bilatera l legs 16286450858 362794 Active [facility] [place] 4 11:08:04 Pain of bilatera l hip joints 41876225408 540788 Active 2023 Bo Bee, DO [address] [place] [address], [address], [facility] 4 16:49:59 Pain of left knee joint 40880117652 4107 Active 2023 Bo Bee, DO [address] [place] [address], [address], [facility] 4 16:50:16 Mood disorder 68019740 Active 2023 Bo Bee, DO [address] [place] [address], [address], [facility] 4 16:55:07 Pain of left hip joint 20332506776 9100 Active 2023 Bo Bee, DO [address] [place] [address], [address], [facility] 4 21:38:29 Traumati c rupture of labrum of left acetabul um 20576089908 737415 Active 2023 Bo Bee, DO [address] [place] [address], [address], [facility] 4 16:25:10 Psoas syndrome 207097471 Active 2024 Bo Bee DO [address] [place] [address], [address], [facility] 5 16:22:27 Iliopsoa s bursitis of left hip 43080923431 47736 Active 2024 Bo Bee DO [address] [place] [address], [address], [facility] 5 16:22:55 Malaise and fatigue 290559372 Active 2024 Bo Bee, [address] [place] [address], [address], [facility] 5 16:28:21 Lumbar radiculo da 988362506 Active 2024 Bo Bee [address], [address], [facility] 5 16:35:09 Hypotest osteroni sm 89329778997 04 Active 2024 Bo Bee [address], [address], [facility] 22:56:41 Fatigue 21179120 Active 2024 Bo Bee [address], [address], [facility] 5 20:46:50 Testicul ar hypofunc tion 255146520 Active 2024 Bo Bee, [address], [address], [facility] 21:47:40 Problem Notes None recorded. Procedures Surgical History Date Name Laterality Status Provider Name and Address Organization Details Recorded Time 7 Colonoscopy completed Tiffany Gaitan [facility] 11/12/2022 16:05:00 Imaging Results None recorded. Procedure Notes None recorded. Medical Equipment None Reported. Allergies Allergen ID Allergen Name Allergen Category Reaction Reaction Severity Criticality Documentation Date Start Date Code Code System Note Provider Name and Address Organization Details Recorded Time 99969 Product containin g penicilli n (product) medicatio n Not available Not available Not available 04/25/20252021 25485 8001 SNOMED Other React ion(s ): Not avail able penic illin V Produ ct conta ining penic illin (prod uct) Not Available jemima - External Data Service - prod 03:11:29 4322 penicilli n V Not available Not available Not available Not available 07/05/2020 7984 RxNorm child padron Tiffany clemente [facility] 08:50:49 4323 POLLEN EXTRACTS environme nt,medica tion Not available Not available Not available 07/05/2020 13530 6 RxNorm [facility] 08:53:20 Medications Name Sig Start Date Stop Date Status Note LastModified by Organization Details LastModified Time p-4 pain formulation versatile Apply 1-3 grams to the affected area 3-4 times daily (LEFT FOOT) 09/02 completed Not Available Not Available Not Available Prescriptio n - Prior Authorizati on Request active Not Available Not Available N ot Available cyclobenzap rine 10 mg tablet Take [...] TABS X1 DAY, 1 TAB X1 DAY 04/25 completed Not Available Not Available Not Available clindamycin HCl 300 mg capsule TAKE 1 CAPSULE EVERY 8 HOURS FOR 7 DAYS 04/25 completed Not Available Not Available Not Available lisinopril 20 mg-hydrochl orothiazide 12.5 mg tablet Take 1 tablet every day by oral route. 08/28 completed Not Available Not Available Not Available alprazolam 1 mg tablet TAKE 1 TABLET 1 HOUR PRIOR TO INJECTION 04/25 completed Not Available Not Available Not Available [...] Not Available Not Available Not Available gabapentin 400 mg capsule TAKE 1 CAPSULE BY MOUTH AT BEDTIME active Not Available Not Available No t Available Zithromax Z-Desean 250 mg tablet TAKE [...] MOUTH TWICE A DAY FOR 7 DAYS 04/25 completed Not Available Not Available Not Available cephalexin 500 mg capsule TAKE 1 [...] TWICE A DAY NEEDED FOR 7 DAYS 04/25 completed Not Available Not Available Not Available indomethaci n 50 mg capsule TAKE 1 CAPSULE BY MOUTH THREE TIMES A DAY FOR 7 DAYS 09/02 completed Not Available Not Available Not Available gabapentin 300 mg capsule TAKE 1 CAPSULE BY MOUTH EVERYDAY AT BEDTIME 04/25 completed Not Available Not Available Not Available diclofenac sodium 75 mg tablet,martha yed release Take 1 tablet twice a day by oral route for 14 days. 02/19 completed Not Available Not Available Not Available codeine 10 mg-guaifene sin 100 mg/5 mL oral liquid TAKE 10 ML BY MOUTH EVERY 4 HOURS NEEDED FOR 7 DAYS. 03/14 completed Not Available Not Available Not Available ibuprofen 600 mg tablet 04/25 completed Not Available Not Available Not Available testosteron e 1 % (25 mg/2.5 gram) transdermal gel packet APPLY 1 PACKET TOPICALLY DAILY 04/25 completed Not Available Not Available Not Available diazepam 5 mg tablet Take 1 tablet 3 times a day by oral route as needed for 7 days. 09/02 completed Not Available Not Available Not Available testosteron e 1 % (50 mg/5 gram) transdermal gel packet Apply 2 packets every day by transderm al route for 30 days. 2024 active Not Available Not Available Not Avai lable oxycodone 5 mg tablet Take 1 tablet every 4 hours by oral route as needed for 7 days. 03/14 completed Not Available Not Available Not Available escitalopra m 10 mg tablet TAKE 1 TABLET BY MOUTH EVERY DAY FOR 30 DAYS 11/25 completed Not Available Not Available Not Available testosteron e 50 mg/5 gram (1 %) transdermal gel active Not Available Not Available Not Available Natesto 5.5 mg/0.122 gram per actuation nasal gel pump [place] 1 spray 3 times a day by intranasa l route for 30 days. 04/25 completed Not Available Not Available Not Available Fish Oil 1,000 mg (120 mg-180 mg) capsule Take 3 capsules every day by oral route. active Not Available Not Available No t Available Vitals Date Recorded Body height Body mass index (BMI) Body weight Heart rate Oxygen saturation Systolic And Diastolic Provider Name and Address Organization Details Last Updated DateTime 5 172.72 cm 26.9 kg/m2 35005.8 5 g 91 /min 97 % 120/70 mm[Hg] Paulette Garcia [facility] 5 16:11:43 Date Recorded Body height Body mass index (BMI) Body weight Heart rate Oxygen saturation Systolic And Diastolic Provider Name and Address Organization Details Last Updated DateTime 5 172.72 cm 26.8 kg/m2 74483.2 6 g 97 /min 97 % 136/80 mm[Hg] Bo Bee, DO [address] [place], [address] , [facility] 5 16:03:04 Date Recorded Body height Body mass index (BMI) Body weight Heart rate Oxygen saturation Systolic And Diastolic Provider Name and Address Organization Details Last Updated DateTime 5 172.72 cm 26.8 kg/m2 61878.2 6 g 96 /min 68 % 120/70 mm[Hg] Paulette Garcia [facility] 5 16:20:13 Date Recorded Body height Body mass index (BMI) Body weight Heart rate Oxygen saturation Systolic And Diastolic Provider Name and Address Organization Details Last Updated DateTime 5 172.72 cm 26.8 kg/m2 74951.2 6 g 96 /min 98 % 118/70 mm[Hg] Paulette Garcia [facility] 5 16:17:34 Date Recorded Body height Body mass index (BMI) Body weight Heart rate Oxygen saturation Systolic And Diastolic Provider Name and Address Organization Details Last Updated DateTime 5 172.72 cm 26 kg/m2 16588.3 g 91 /min 97 % 172/84 mm[Hg] Leyla Aguirre [facility] 5 16:15:22 Social History Question Answer Notes LastModified by Organizat ion Details LastModified Time Tobacco Smoking Status [facility] 16:15:41 What Was The Date Of Your Most Recent Tobacco Screening? 04/25/2025 [email or web address] Information not available 04/25/2025 How Much Tobacco Do You Smoke? 0.5 PPD [email or web address] Information not available 07/11/2020 Sex: Male Functional Status Question Answer Note LastModified by Organization D etails LastModified Time Do you or have you ever used any other forms of tobacco or nicotine? No [email or web address] Information not available 05/10/2024 Mental Status None recorded. Family History Nothing Reported. Medical History No medical history recorded. Immunizations Vaccine Type Date Status Note Provider Nam e and Address Organization Details Recorded Time Tdap 5 completed Not Available [facility] 04/22/2022 22:37:08 tetanus toxoid, unspecified formulation 9 completed Not Available [facility] 04/22/2022 22:37:08 Influenza, split virus, quadrivalent, preservative 0 completed Not Available [facility] 04/22/2022 22:37:08 Past Encounters Encounter ID Performer Location Encounter Start Date Encounter Closed Date Diagnosis/Indication Diagnosis SNOMED-CT Code Diagnosis ICD10 Code Diagnosis IMO Codes Diagnosis Note [id number] Bo Bee [facility] [address] [facility],[place] [address] 07/11/2020 16:10:37 07/12/2020 09:07:48 Lightheadedness 617535320 R42 we will first check this lab also we will have him go back to plain lisinopril and call next week will also get echo Hearing loss 18079872 H9 1.93 Neuropathy 382806935 G62 .9 has a great of pain in his feet so he will need to explore no med tx told to call [facility] [id number] Bo Bee [facility] [address] [facility],[place] [address] 08/28/2020 16:08:43 08/28/2020 16:44:52 Acute low back pain 492732017 M54.5 will start cyclobenza adriane [id number] Bo Bee [facility] [address] [facility],[place] [address] 10/10/2021 10:29:38 10/10/2021 15:40:39 Active or passive immunization 397140047 Z23 UTD Hepatitis C screening 41 3305307 Z11.59 Positional vertigo 62000 4002 H81.12 stop allergy medsstop phenylephr ineincreas e fluids call if any changes Essential hypertension 33854602 I10 stable and no issuesposs the lisinopril added to the symptoms of vertigo?? [id number] Bo Bee [facility] [address] [facility],[place] [address] 11/13/2021 16:10:41 11/13/2021 16:47:04 Tobacco user 542711609 Z72.0 Essential hypertension 80204484 I10 stable and no issuesno vertigo sx feeling well Mixed hyperlipidemia 267 682156 E78.2 we will rechk the cholest later in the year Screening for malignant neoplasm of colon 161053155 Z12.11 waiting for 10 year Chronic pain syndrome 37 2940361 G89.4 working well [id number] oB Bee [facility] [address] [facility],[place] [address] 04/17/2022 16:22:00 04/19/2022 08:15:25 Gout 66045201 M10.9 will treat with indocin [id number] Bo Bee [facility] [address] [place] [address] 04/24/2022 15:55:37 04/24/2022 16:48:52 Cellulitis of left foot 6576347200 5838596 L03.116 ceftriaxon e 1 gm given and he will cont the cephalexin [id number] Bo Bee [facility] [address] [facility],[place] [address] 05/01/2022 14:09:47 05/01/2022 14:48:21 Cellulitis of left foot 9828588063 8419004 L03.116 will fu with patient after imaging Pain in left foot 269862 6119 00528 M79.672 will recheck foot in a week Neuropathy 065164293 G62 .9 will start on gabapentin [id number] Bo Bee [facility] [address] [facility] [address],[place] [address] 05/10/2022 15:56:49 05/13/2022 09:01:59 Cellulitis of left foot 1507125684 3613074 L03.116 has finished all the doxy 4 days ago and has not improvedwe have bone scan pendinghis pain is the same he is working on thisalso we will need to do more lab [id number] Bo Bee [facility] [address] [facility] [address],[place] [address] 11/12/2022 16:14:51 11/13/2022 08:07:02 Mixed hyperlipidemia 403129920 E78.2 we will rechk the cholest later in the year Essential hypertension 20986195 I10 stable and no issuesno vertigo sx feeling wellnoted that his lab showed K+ 5.4 this last time but his k has been stable so believe this might not be an issue [id number] Bo JackBelem Rohit [facility] [address] [facility] [address],[place] [address] 03/03/2023 16:25:54 03/04/2023 08:14:35 Essential hypertension 59231944 I10 stable and no issuesno vertigo sx feeling wellnoted that his lab showed K+ 5.4 this last time but his k has been stable so believe this might not be an issue Mixed hyperlipidemia 267 554953 E78.2 we will rechk the cholest later in the year Degenerati on of lumbar intervertebral disc 57224570 M51.36 has loss of dtr left achilles has weakness of left leg muscles and loss of sensation along l3 l4 derm Weakness o f left lower limb 8855362213 25513 M62.81 [id number] Bo Aram Bee [facility] [address] [facility] [address],[place] [address] 03/11/2023 14:37:40 03/11/2023 16:07:56 Spasm 55938361 R25.2 will set up with additional lab workalso an EMG study Pain in lower limb 15269 006 M79.606 will set up with b12 and b6 as well for additional [id number] Bo Bee [facility] [address] [facility] [address],[place] [facility] [place] [address] 09/03/2023 16:10:52 09/03/2023 16:55:25 Chronic pain syndrome 567531619 G89.4 working well Essential hypertension 65983129 I10 stable and no issuesno vertigo sx feeling wellnoted that his lab showed K+ 5.4 this last time but his k has been stable so believe this might not be an issue Mixed hyperlipidemia 267 960922 E78.2 we will rechk the cholest later in the year but we are holding the statin Neuropathy 186363210 G62 .9 has a great of pain in his feet so we will consider a poss side effect from simvastati n he will stop Pain in lower limb 93072 006 M79.606 darci study Depression screening 171 490889 Z13.31 neg Lumbar spondylosis 00554 0009 M47.896 following DC [id number] Bo Bee [facility] [address] [facility], [place] [address] 10/28/2023 16:09:01 10/29/2023 08:40:00 Essential hypertension 99150467 I10 stable and no issuesno vertigo sx feeling wellnoted that his lab showed K+ 5.4 this last time but his k has been stable so believe this might not be an issue Pain of bi lateral hip joints 9524637420 6412088 M25.552 Pain of le ft knee joint 8675300371 42262 M25.562 Mood disorder 09011933 F 39 [id number] Bo Bee [facility] [address] [facility],[place] [facility] [place] [address] 11/26/2023 16:05:56 11/28/2023 09:05:41 Traumatic rupture of labrum of left acetabulum 9486452530 3514740 S73.192A getting worse and now affecting employment and adls must have this eval Mood disorder 67672667 F 39 [id number] Bo Bee [facility] [address] [facility] [address] [address] 05/10/2024 16:03:17 05/10/2024 16:44:47 Essential hypertension 55508489 I10 stable and no issuesno vertigo sx feeling wellnoted that his lab showed K+ 5.4 this last time but his k has been stable so believe this might not be an issue Weakness o f left lower limb 5382967798 30079 M62.81 relates that the left leg weakness and pain is ongoing to 14 mo now [id number] Bo Bee [facility] [address] [facility] [address] [place] [address] 06/07/2024 15:55:53 06/07/2024 16:35:03 Essential hypertension 39764654 I10 stable and no issuesno vertigo sx feeling wellnoted that his lab showed K+ 5.4 this last time but his k has been stable so believe this might not be an issue Iliopsoas bursitis of left hip 5385609694 178996 M70.72 [id number] Bo Bee [facility] [address] [facility] [facility] [address] 10/12/2024 16:09:27 10/12/2024 16:37:53 Depression screening 163336806 Z13.31 neg Essential hypertension 34319636 I10 stable and no issuesno vertigo sx feeling wellnoted that his lab showed K+ 5.4 this last time but his k has been stable so believe this might not be an issue Mixed hyperlipidemia 267 956903 E78.2 we will rechk the cholest later in the year but we are holding the statin Malaise and fatigue 2713 54334 R53.81 R53.83 [id number] ongoing for months and is a big issue now [id number] Bo Bee [facility] Internal Medicine [address] [facility] [address] [address] 11/09/2024 16:07:20 11/09/2024 16:39:40 Essential hypertension [id number] I10 stable and no issuesno vertigo sx feeling wellnoted that his lab showed K+ 5.4 this last time but his k has been stable so believe this might not be an issue Depression screening 171 [id number] Z13.31 neg Lumbar radiculopathy 128 380733 M54.16 [id number] epidural is given todayat [id number] [id number] Bo Bee DO [facility] Internal Medicine [address] [facility],[place] [address] 04/25/2025 16:11:00 04/25/2025 16:52:40 Depression screening [id number] Z13.31 neg Essential hypertension [id number] I10 stable and no issuesno vertigo sx feeling wellnoted that his lab showed K+ 5.4 this last time but his k has been stable so believe this might not be an issue Gout 28919573 M10.9 will treat with indocin Hypotestosteronism 25791 40600 104 E34.9 555963 here for still very low and not feeling well Fatigue 20132199 R53.82 226516 ongoing for months and is a big issue now Health Concerns Section Related Observation LastModified by Organization Detai ls LastModified Time None Recorded Concern Status LastModified by Organization Details LastModified Time None Recorded Advance Directives Directive None Recorded Payers Insurance Date Sequence Insurance Name Policy Number Policy Peters Covered Member ID Peters Member ID Guarantor Name 12/25/2021 1 [facility] [place] [id number] 1 Ruben L Vanasse [id number] Mercedes Nash 04/22/2025 1 [employer] (PPO) [id number] Mercedes Alfonso Vanasse [id number] Mercedes Nash Notes Date Note Type Note Provider Name and Address Organization Details Recorded Time 05/10/19 25 text/htm l ROS as noted in the HPI here for rechkrelates that he is still [...] with them and needs further w/u Bo Bee DO [address] [facility] [employer] [facility] [employer], [place], [address], [facility] Internal Medicine 05/10/2024 16:42:54 02/03/20 25 text/htm l ROS as noted in the HPI here for rechk mri is negative for signif pathologyrelates that he is having pain behind the thigh and in hippain is ongoing and i s worse at end of day Bo Bee, DO [address] [place], [address], [facility] Internal Medicine 06/07/2024 16:25:18 10/13/19 25 text/htm l Care Management - HypertensionReported by PatientHPIFor self care, patient reportsnot under emotional stress. For severity, patient reportssymptoms are improvinganddoes not interfere with daily activities. For associated symptoms, patient reportsno dizziness,no lightheadedness,no chest pain,no shortness of breath,no palpitations,no edema,no calf muscle cramps,no blurred vision,no confusion,no headaches, andno fatigue. Care Management - HyperlipidemiaReported by PatientHPIFor control, patient reportsusually well controlled,improving, andat goal. For complications, patient reportsno coronary artery disease,no heart attack,no cardiovascular disease,no pancreatitis, andno stroke.ROS as noted in the HPI relates not feeling well states feeling tired a lotseen by [facility] and was given gabpentin for leg [...] with them and needs further w/u Bo Bee, [address] [place], [address], [facility] Internal Medicine 10/12/2024 16:37:07 11/10/19 25 text/htm l Care Management - HypertensionReported by PatientHPIFor self care, patient reportsnot under emotional stress. For severity, patient reportssymptoms are improvinganddoes not interfere with daily activities. For associated symptoms, patient reportsno dizziness,no lightheadedness,no chest pain,no shortness of breath,no palpitations,no edema,no calf muscle cramps,no blurred vision,no confusion,no headaches, andno fatigue.ROS as noted in the HPI here for rechk of his labtestost is 186 awaiting 2nd labalso he is on the gabapentin and is doing well !!!relates that he is doing 300mg total and is doing ok wiht this Bo Bee DO [address] [place] [address], [address], [facility] Internal Medicine 11/09/2024 16:37:59 04/25/20 25 text/htm l ROS as noted in the HPI here for rechk and is doing ok overall Bo Bee DO [address] [place], [address], [facility] Internal Medicine 04/25/2025 16:38:15
--- OUTSIDE RECORDS SUMMARY | 2025-04-26 15:35 | XMS_ITS | Encounter Summary ---
Author Organization [facility] Address [address] [facility] [address] [place] [address] Phone Care Team Providers Care Staff Appraiser Name Role Phone MichelleBo rocha Jack VITAL Primary Care Provider [phone] Encounter Details Date Type Department Care Team (Latest Contact Info) Description 05/03/2022 Transcribe Orders Virtual Department [address] [place] [address] Nilda Lennon PA [address] [place] [address] [place] [address] Cellulitis of left lower limb (Primary Dx) Social History Tobacco Use Types [...] on file documented as of this encounter Visit Diagnoses Diagnosis Cellulitis of left lower limb- Primary documented in this encounter Care Teams Staff Appraiser Relationship Specialty Start Date End Date Bo Bee DO [email or web address] PCP - General Internal Medicine 09/20/20 documented as of this encounter Additional Source Comments The information contained in this document represents components of the legal health record. It is not the complete legal health record.[facility]
--- OUTSIDE RECORDS SUMMARY | 2025-04-26 15:35 | XMS_ITS | Encounter Summary ---
Author Organization [facility] Address [address] [address] Phone Care Team Providers Care Threat Analyst Name Role Phone Bo Bee DO Primary Care Provider [phone] Encounter Details Date Type Department Care Team (Late st Contact Info) Description 09/22/2023 Transcribe Orders Virtual Department [address] [place] [address] Bo Bee DO [address] [facility] [place] [address] [email or web address] Bilateral leg pain (Primary Dx) Social History [...] as of this encounter Visit Diagnoses Diagnosis Bilateral leg pain- Primary Pain in soft tissues of limb documented in this encounter Care Teams Threat Analyst Relationship Specialty Start Date End Date Bo Bee DO [email or web address] PCP - General Internal Medicine 09/20/20 documented as of this encounter Additional Source Comments The information contained in this document represents components of the legal health record. It is not the complete legal health record.[facility]
--- OUTSIDE RECORDS SUMMARY | 2025-04-26 15:35 | XMS_ITS | Encounter Summary ---
Author Organization [facility] Address [address] [place] [address] Phone Care Team Providers Care Specialist Icu Name Role Phone Chance Moreno MD Unavailable [phone] Jostin Rios MD Unavailable Lyric Mills [employer] Unavailable [phone] Lyric Mills [employer] Primary Care Provider [phone] Bo Bee DO Primary Care Provider [phone] Encounter Details Date Type Department Care Team (Late st Contact Info) Description 07/12/2020 Procedure [facility] [address] [place] [address] Social History Tobacco Use Types Packs/Day Years [...] documented as of this encounter Visit Diagnoses Not on filedocumented in this encounter Care Teams Specialist Icu Relationship Specialty Start Date End Date Lyric Mills NP [address] [place], [place] [id number] PCP - General Nurse Practitioner 09/21/19 09/19/20 Bo Bee DO [address] [place], [place] [id number] [email or web address] PCP - General Internal Medicine 09/20/20 Chance Moreno MD [address] [facility] 1st Floor [address] [place] [address] Historical LMR Provider 02/17/17 2 Jostin Rios MD [address] [place] [address] [email or web address] Historical LMR Provider 02/17/17 05/12/21 Lyric Mills NP [address] [place] [address] Historical LMR Provider 02/17/17 documented as of this encounter Additional Source Comments The information contained in this document represents components of the legal health record. It is not the complete legal health record.[facility]
--- OUTSIDE RECORDS SUMMARY | 2025-04-26 15:35 | XMS_ITS | Encounter Summary ---
Author Organization [facility] Address [address] [address] Phone Care Team Providers Care Third Rail Installer Name Role Phone Chance Moreno MD Unavailable [phone] Jostin Rios MD Unavailable Lyric Mills [employer] Unavailable [phone] Lyric Mills [employer] Primary Care Provider [phone] Bo Bee DO Primary Care Provider [phone] Reason for Referral * Outpatient Procedure - Closed Specialty Diagnoses / Procedures Referred By Jeet jorge Referred To Contact Diagnoses Dizziness and giddiness Lightheadedness Procedures Adult Echo TTE Bo Bee DO Phone: tel: fax: [email or web address] Referral ID Status Reason Start Date Expiration Date Visits Re quested Visits Authorized [id number] Closed 08/23/2020 09/21/2020 1 0 Encounter Details Date Type Department Care Team (Late st Contact Info) Description 07/12/2020 Transcribe Orders Virtual Department [address] [place] [address] Bo Bee DO [address] [facility] [place] [address] [email or web address] Dizziness and giddiness (Primary Dx); Lightheadedness Social History Tobacco Use Types Packs/Day Years [...] documented as of this encounter Results * TTE COMPREHENSIVE (09/20/2020 1:08 PM EDT) Body Surface Area 2.0 m2 Height 175 cm Weight 80 kg Systolic BP 136 mmHg Diastolic BP 82 mmHg Left Atrium Dimension Anterior-Posterior 32 15 - 40 mm Aortic Valve Mean Gradient 4 mmHg Aortic Valve Time Velocity Integral 229 mm Aortic Valve Peak Velocity 155.0 cm/s Aortic Valve Peak Gradient 10 mmHg Aortic Sinus Diameter 29 mm Ascending Aorta Diameter 31 mm Inferior Vena Cava Diameter 11 0.0 - 21 mm Interventricular Septum Thickness 10 mm Left Ventricle Internal Diameter End Diastole 42 42 - 58 mm Left Ventricle Internal Diameter End Systole 29 25 - 40 mm Left Ventricular Outflow Tract Diameter 21.0 mm LVOT VTI REST 217 mm Left Ventricular Outflow Tract Velocity 1.2 m/s Left Ventricular Outflow Tract Gradient at Rest 6 mmHg Left Ventricular Posterior Wall Thickness 10 mm Mitral Valve A Wave Speed 104.0 cm/s Mitral Valve E Wave Speed 76.6 cm/s Right Ventricle Basal Diameter 32.6 25 - 41 mm Raw LV EF% 52 % Left Atrial Volume 26 mL Left Atrial Volume Index 13.00 mL/m2 Right Ventricle TAPSE 18 mm Right Ventricle Pulse Doppler S Wave 15.0 cm/s Aortic Valve Sinus Index 1 15 20 - 32 mm Ascending Aorta Diameter 16 mm Aortic Sinus Index 15 mm Ascending Aorta Index 16 mm Anatomical Region Laterality Modality Heart Ultrasound Narrative 09/20/2020 1:46 PM EDT Normal LV size and function EF 65%. There is a thickened aortic and mitral valve but grossly normal valve function. Normal diastolic function for age. Normal RV size and function. Left Ventricle The left ventricular cavity size and wall thickness are normal. Left ventricular systolic function is normal. There are no segmental left ventricular wall motion abnormalities noted. Left ventricular diastolic function appears within normal limits for age. There is no evidence of left ventricular thrombus. Right Ventricle The right ventricular size is normal. The right ventricular systolic function is normal. Left Atrium The left atrium is normal in size. The LA volume is 26 mL. The LA volume index is 13 mL/m2 (normal indexed value is 16-34 mL/m2). The pulmonary venous flow profiles are normal. Right Atrium The right atrium is normal in size. The IVC measures 11 mm (normal <=21 mm). The IVC demonstrates normal collapse with inspiration which is consistent with normal RA pressure. Mitral Valve E/A ratio is 0.7. E/E' avg is 9.6. Lat E' velocity is 8.70cm/s. Med E' velocity is 7.18cm/s. There is no evidence of mitral stenosis. There is mild diffuse thickening of the posterior mitral valve leaflet. There is no evidence of mitral valve prolapse. There is trace mitral regurgitation detected by spectral and color Doppler. Tricuspid Valve The tricuspid valve appears normal. There is no evidence of tricuspid stenosis. There is no evidence of significant tricuspid regurgitation by color and spectral Doppler. Aortic Valve The aortic valve is tricuspid. There is mild thickening of multiple aortic leaflets. There is no evidence of valvular aortic stenosis. The peak aortic valve gradient is 10 mmHg. There is no evidence of aortic regurgitation by color and spectral Doppler. The visualized portions of the thoracic aorta appear normal. Pulmonic Valve The pulmonary valve appears normal. There is no evidence of pulmonic stenosis. There is evidence of trace pulmonary regurgitation by color and spectral Doppler. Pericardium There is no evidence of pericardial effusion. Interatrial Septum The interatrial septum appears normal. General Findings Technically adequate echocardiogram. Technique(s) used in the evaluation: Color flow Doppler and Spectral Doppler. The predominant rhythm during the study was sinus. Comparison Findings No prior studies for comparison. Bo Bee DO CV ECHO ORDERABLES Final Result documented in this encounter Visit Diagnoses Diagnosis Dizziness and giddiness- Primary Lightheadedness Dizziness and giddiness Dizziness and giddiness Lightheadedness Dizziness and giddiness documented in this encounter Care Teams Third Rail Installer Relationship Specialty Start Date End Date Lyric Mills NP [address] [place] [address] PCP - General Nurse Practitioner 09/21/19 09/19/20 Bo Bee DO [address] [place] [address] [email or web address] PCP - General Internal Medicine 09/20/20 Chance Moreno MD [address] [facility] 1st Floor [address] [place] [address] Historical LMR Provider 02/17/17 2 Jostin Rios MD [address] [place] [address] [email or web address] Historical LMR Provider 02/17/17 05/12/21 Lyric Mills NP [address] [place] [address] Historical LMR Provider 02/17/17 documented as of this encounter Additional Source Comments The information contained in this document represents components of the legal health record. It is not the complete legal health record.[facility]
--- OUTSIDE RECORDS SUMMARY | 2025-04-26 15:35 | XMS_ITS | Continuity of Care Document ---
Author Organization [place] [facility], [facility] Address [address] [place] [address] Assessment Encounter Date Assessment Date Assessment LastModified by Organization Details LastModified Time 04/25/2025 04/25/2025 [address] [place] [address] (PHYSICAL THERAPY COORDINATOR) MDM MODERATE MUST MEET 2 OUT OF [...] Lab uric acid, serum or plasma 2024 025 [facility], [address] [place] [address], [place], [address], 16:37:01 testostero ne, total, serum 2024 025 [facility], [address] [place] [address], [place], [address], 5 16:37:01 shbg (sex hormone-bi nding globulin), serum 2024 [facility], [address] [place] [address], [address], 16:37:01 CMP, serum or plasma 2024 [facility], [address] [place] [address], [address], 16:37:01 vitamin B12 + folate, serum or blood 2024 [facility], [address] [place] [address], [address], 5 16:37:01 vitamin D, 25-hydroxy , total, serum 2024 [facility], [address] [place] [address], [address], 16:37:01 TSH, serum or plasma 2024 [facility], [address] [place] [address], [address], 5 16:37:01 CBC 2024 [facility], [address] [place] [address], [address], 16:37:01 Referral None recorded. Procedures None recorded. Surgeries None recorded. Imaging None recorded. Medication Orders testostero ne 1 % (50 mg/5 gram) transderma l gel packet 2024 [facility][id number], [address] [place], [address], 16:28:42 Patient TargetsNo targets recorded. Patient Instructions Encounter Date Encounter Id Patient Instructions Last Modified By Organization Details Last Modified Time 04/25/2025 [id number] gout: care instructions Not available 04/25/2025 16:28:40 high blood pressure: care instructions Not available 04/25/2025 16:28:40 learning about high blood pressure Not available 04/25/2025 16:28:40 Reason for Referral None Reported. Problems Name Problem SNOMED Code Status Onset Date Resolution Date Notes Provider Name and Address Organization Details Recorded Time Mixed hyperlip idemia 119364315 Active 2020 Rachel clemente [facility] 4 11:08:04 Tobacco user 953024392 [facility] Chronic pain syndrome 719747107 [facility] 11[facility] hyperten gumaro 79916132 Active 2020 Rachel clemente [facility] 4 11:08:04 Alopecia areata 77252706 [facility] 11:[facility] Low back pain 633554485 [facility] 11:[facility]:04 Allergic rhinitis 13928873 Active 2020 pollen Rachel clemente [facility] 4 11:08:04 Position al vertigo 233102229 Active 2021 Rachel clemente [facility] 4 11:08:04 Neck pain 09263663 Active 2021 Rachel clemente [facility] 4 11:08:04 COVID-19 325912913 Active 2021 Rachel clemente [facility] 4 11:08:14 Gout 03144918 Active 2021 Rachel clemente [facility] 4 11:08:04 Cellulit is of left foot 16856368399 726660 Active 2021 Rachel Walker null, [facility] 4 11:08:14 Nausea 779904844 Active 2021 Rachel Walker null, [facility] 4 11:08:14 Pain in left foot 33441898935 9107 Active 2021 Rachel Walker null, [facility] 4 11:08:04 Neuropat hy 388602403 Active 2021 Rachel Walker null, [facility] 4 11:08:04 Osteomye litis of left foot 02959212824 96825 Active 2022 Rachel Walker null, [facility] 4 11:08:04 Palpitat ions 73165987 Active 2022 Rachel Walker null, [facility] 4 11:08:04 Degenera tion of lumbar interver tebral disc 36312823 Active 2022 Rachel Walker null, [facility] 4 11:08:04 Weakness of left lower limb Active 2022 Rachel Walker null, [facility] 4 11:08:04 Lumbar spondylo sis 187526304 Active 2022 Rachel Walker null, [facility] 4 11:08:04 Spasm 87595867 Active 2022 Rachel Walker null, [facility] 4 11:08:04 Pain in lower limb 68324993 Active 2022 Rachel Walker null, [facility] 4 11:08:04 Nausea and vomiting 54628030 Active 2022 Rachel Walker null, [facility] 4 11:08:14 Rhabdomy olysis 432723949 Active 2022 Rachel Walker null, [facility] 4 11:08:04 Pain in bilatera l legs 52423982260 306084 [facility] 2023 [facility] 4 11:08:04 Pain of bilatera l hip joints 00635120902 450092 Active 2023 Bo Bee, DO [address] [place] [address], [address], [facility] 4 16:49:59 Pain of left knee joint 71212883582 4107 Active 2023 Bo Bee, DO [address] [place] [address], [address], [facility] 4 16:50:16 Mood disorder 79982530 Active 2023 Bo Bee, DO [address] [place] [address], [address], [facility] 4 16:55:07 Pain of left hip joint 35923458336 9100 Active 2023 Bo Bee, DO [address] [place] [address], [address], [facility] 4 21:38:29 Traumati c rupture of labrum of left acetabul um 33122541402 129625 Active 2023 Bo Bee, DO [address] [place] [address], [address], [facility] 4 16:25:10 Psoas syndrome 118834836 Active 2024 Bo Bee, DO [address] [place] [address], [address], [facility] 5 16:22:27 Iliopsoa s bursitis of left hip 03071064244 06847 Active 2024 Bo Bee, DO [address] [place] [address], [address], [facility] 5 16:22:55 Malaise and fatigue 208824976 Active 2024 Bo Bee, DO [address] [place] [address], [address], [facility] 16:28:21 Lumbar radiculo da 917980372 Active 2024 Bo Bee, DO [address] [place], [address], [facility] 16:35:09 Hypotest osteroni sm 57715270328 04 Active 2024 Bo Bee, DO [address] [place] [address], [address], [facility] 22:56:41 Fatigue 98197289 Active 2024 Bo Bee, DO [address] [place] [address], [address], [facility] 20:46:50 Testicul ar hypofunc tion 829288110 Active 2024 Bo Bee, DO [address] [place] [address], [address], [facility] 21:47:40 Problem Notes None recorded. Procedures Surgical History Date Name Laterality Status Provider Name and Address Organization Details Recorded Time 7 Colonoscopy completed Tiffany Gaitan [facility] 11/12/2022 16:05:00 Imaging Results None recorded. Procedure Notes None recorded. Medical Equipment None Reported. Allergies Allergen ID Allergen Name Allergen Category Reaction Reaction Severity Criticality Documentation Date Start Date Code Code System Note Provider Name and Address Organization Details Recorded Time 10793 Product containin g penicilli n (product) medicatio n Not available Not available Not available 04/25/20252021 61546 8001 SNOMED Other React ion(s ): Not avail able penic illin V Produ ct conta ining penic illin (prod uct) Not Available jemima - External Data Service - prod 03:11:29 4322 penicilli n V Not available Not available Not available Not available 07/05/2020 7984 RxNorm child padron Tiffany clemente ALLAN Cyndee [facility] 08:50:49 4323 POLLEN EXTRACTS environme nt,medica tion Not available Not available Not available 07/05/2020 99470 6 RxNorm Tiffany clemente ALLAN Cyndee [facility] 08:53:20 Medications Name Sig Start [...] mg/0.122 gram per actuation nasal gel pump Eldon 1 spray 3 times a day by [...] Updated DateTime 5 172.72 cm 26 kg/m2 25009.3 g 91 /min 97 % 172/84 mm[Hg] Leyla Carla [facility] 16:15:22 Social History Question Answer Notes LastModified by Organizat ion Details LastModified Time Tobacco Smoking Status Current Every Day Smoker [facility] 07/11/2020 16:15:41 What Was The Date Of Your Most Recent Tobacco Screening? 04/25/2025 [email or web address] Information not available 04/25/2025 How Much Tobacco Do You Smoke? 0.5 PPD [email or web address] Information not available 07/11/2020 Sex: Male Functional Status Question Answer Note LastModified by Organization D etails LastModified Time Do you or have you ever used any other forms of tobacco or nicotine? No [email or web address] Information not available 05/10/2024 Mental Status None recorded. Family History Nothing Reported. Medical History No medical history recorded. Immunizations Vaccine Type Date Status Note Provider Nam e and Address Organization Details Recorded Time Tdap 5 completed Not Available [facility] 04/22/2022 22:37:08 tetanus toxoid, unspecified formulation 9 completed Not Available [facility] 04/22/2022 22:37:08 Influenza, split virus, quadrivalent, preservative 0 completed Not Available [facility] 04/22/2022 22:37:08 Past Encounters Encounter ID Performer Location Encounter Start Date Encounter Closed Date Diagnosis/Indication Diagnosis SNOMED-CT Code Diagnosis ICD10 Code Diagnosis IMO Codes Diagnosis Note [id number] Bo Bee [facility] [address] [address] 04/25/2025 16:11:00 04/25/2025 16:52:40 Depression screening 556299126 Z13.31 neg Essential hypertension 29287195 I10 stable and no issuesno vertigo sx feeling wellnoted that his lab showed K+ 5.4 this last time but his k has been stable so believe this might not be an issue Gout 29357021 M10.9 will treat with indocin Hypotestosteronism 57199 44332 104 E34.9 273369 here for still very low and not feeling well Fatigue 52985211 R53.82 232117 ongoing for months and is a big issue now Health Concerns Section Related Observation LastModified by Organization Detai ls LastModified Time None Recorded Concern Status LastModified by Organization Details LastModified Time None Recorded Payers Encounter Date Sequence Insurance Name Policy Number Policy Peters Covered Member ID Peters Member ID Guarantor Name 04/25/2025 1 NAVA ([facility]) [id number] 2 Mercedes Nash [id number] Mercedes Nash Notes Date Note Type Note Provider Name a nd Address Organization Details Recorded Time 04/25/2025 text/html ROS as noted in the HPI here for rechk and is doing ok overall Bo Bee, DO [address] [place] [address], [place], [address], [facility] 04/25/2025 16:38:15
--- OUTSIDE RECORDS SUMMARY | 2025-04-26 15:35 | XMS_ITS | Encounter Summary ---
Author Organization [facility] Address [address] [address] Phone Care Team Providers Care Banbury Machine Operator Name Role Phone Bo Bee DO Primary Care Provider [phone] Encounter Details Date Type Department Care Team (Late st Contact Info) Description 11/24/2023 Transcribe Orders Virtual Department [address] [place] [address] Bo Bee DO [address] [place] [address] [email or web address] Left hip pain (Primary Dx) Social History Tobacco Use [...] as of this encounter Visit Diagnoses Diagnosis Left hip pain- Primary Pain in joint, pelvic region and thigh documented in this encounter Care Teams Banbury Machine Operator Relationship Specialty Start Date End Date Bo Bee DO [email or web address] PCP - General Internal Medicine 09/20/20 documented as of this encounter Additional Source Comments The information contained in this document represents components of the legal health record. It is not the complete legal health record.[facility]
--- OUTSIDE RECORDS SUMMARY | 2025-04-26 15:35 | XMS_ITS | Clinical Summary ---
Author Organization [facility] Address [address] [address] Phone Care Team Providers Care Hand Inspector Name Role Phone Bo Bee Primary Care Provider [phone] Allergies Active Allergy Reactions Criticality Noted Date Comments Penicillins 04/22/2022 Other Reaction(s): Not available penicillin V Product containing penicillin (product) Medications traMADoL (ULTRAM) 50 mg tablet Take 100 mg by mouth 3 (three) times a day. 09/21/2023 Active lisinopril (PRINIVIL,ZESTR IL) 20 MG tablet Take 1 tablet(s) every day by oral route. 09/21/2023 Active gabapentin (NEURONTIN) 300 MG capsule Take 300 mg by mouth nightly at bedtime. 09/20/2024 Active simvastatin (ZOCOR) 20 MG tablet Take 20 mg by mouth daily. 04/27/2024 Active Active Problems No known active problems Social History Tobacco Use Types Packs/Day Years Used Date Smoking Tobacco: Every Day Cigarettes Smokeless Tobacco: Never Tobacco Cessation:Ready to Q uit: Not Asked; Counseling Given: Not Answered Alcohol Use Standard Drinks/Week Comments Yes 0 [...] AM EST Sexual Orientation Not on file Last Filed Vital Signs Vital Sign Reading Time Taken Comments Blood Pressure 124/74 09/26/2024 2:23 PM EDT Pulse 88 09/26/2024 2:23 PM EDT Temperature 36.7 C (98.1 F) 09/26/2024 2:23 PM EDT Respiratory Rate 20 09/26/2024 2:23 PM EDT Oxygen Saturation 98% 09/26/2024 2:23 PM EDT Inhaled Oxygen Concentration - - Weight 79.4 kg (175 lb) 09/26/2024 2:23 PM EDT Height 172.7 cm (5' 8 ) 09/26/2024 2:23 PM EDT Body Mass Index 26.61 09/26/2024 2:23 PM EDT Plan of Treatment Health Maintenance Due Date Last Done Comments LIPID PANEL 1962 DEPRESSION SCREENING 1974 SMOKING Hx and SMOKELESS TOBACCO SCREENING 12/21/1975 HEPATITIS C SCREENING 1980 HIV ONE-TIME SCREENING (18-65 YEARS) 1980 PNEUMOCOCCAL VACCINES (50+ years) (1 of 2 - PCV) 1981 COLOGUARD 12/21/2007 FIT TEST 12/21/2007 FOBT 12/21/2007 SIGMOIDOSCOPY 12/21/2007 VIRTUAL COLONOSCOPY 12/21/2007 ZOSTER VACCINES (1 of 2) 2012 CREATININE LEVEL 04/22/2023 04/22/2022 POTASSIUM LEVEL 04/22/2023 04/22/2022 INFLUENZA VACCINE (#1) 2024 4, 03/29/2020, 02/12/2020, Additional history exists COVID-19 VACCINE (2024- season) 2025 05/31/2021, 05/03/2021 Adult Td,Tdap Booster 02/17/2025 02/17/2015, 009 SCREENING FOR DIABETES 04/22/2025 04/22/2022 COLONOSCOPY 12/02/2026 12/02/2016 COLORECTAL CANCER SCREENING 12/02/2026 RSV VACCINE (1 - 1-dose 75+ series) 2037 HEPATITIS A VACCINES Aged Out No long er eligible based on patient's age to complete this topic HIB VACCINES Aged Out No longer eligi ble based on patient's age to complete this topic MENINGOCOCCAL VACCINES (ACWY) Aged Out No longer eligible based on patient's age to complete this topic MENINGOCOCCAL VACCINES (B) Aged Out N o longer eligible based on patient's age to complete this topic Medical Devices Not on file Procedures Procedure Name Priority Date/Time Associated Diagnosis Comments BASIC METABOLIC PANEL (BMP) STAT 04/22/2022 1:58 PM EST COLONOSCOPY FOR RESULT ENTRY ONLY Routine 12/02/2016 from Last 3 Months or Most Recently Relevant to Health Maintenance Results * (ABNORMAL) Basic metabolic panel (04/22/2022 1:58 PM EST) SODIUM 135 133 - 146 mmol/L [facility] CHLORIDE 100 96 - 108 mmol/L [facility] POTASSIUM 4.7 3.3 - 5.1 mmol/L [facility] Comment:Specimen slightly he molyzed, result may be falsely elevated. CO2 26 21 - 35 mmol/L [facility] BUN 30(H) 6 - 19 mg/dL [facility] CREATININE 0.90 0.5 - 1.5 mg/dL [facility] GLUCOSE 78 70 - 99 mg/dL [facility] CALCIUM 9.9 8.4 - 10.3 mg/dL [facility] EGFR 98 >59 mL/min/1.7 3m2 [facility] Comment:Estimated glomerular filtration rate calculated using the CKD-EPI refit equation. ANION GAP 14 10 - 20 mmol/L [facility] Blood 04/22/2022 1:58 PM EST 04/22/2022 2:03 PM EST us Eddie Cruz PA-C LAB BLOOD BKR ORDERABLES Rosita l Result [facility] [address] [place] [address] * COLONOSCOPY FOR RESULT ENTRY ONLY (12/02/2016) HM Colonoscopy external us Historical Provider MD HEALTH MAINTENANCE Final Result from Last 3 Months or Most Recently Relevant to Health Maintenance Insurance [employer] CHOICE CHOICE CHOICE CHOICE Care Teams Hand Inspector Relationship Specialty Start Date End Date Bo Bee DO [email or web address] PCP - General Internal Medicine 09/20/20 Additional Source Comments The information contained in this document represents components of the legal health record. It is not the complete legal health record.[facility]
--- OUTSIDE RECORDS SUMMARY | 2025-04-26 15:35 | XMS_ITS | Encounter Summary ---
Author Organization [facility] Address [address] [address] Phone Care Team Providers Care Shank Burnisher Name Role Phone Bo Bee DO Primary Care Provider [phone] Encounter Details Date Type Department Care Team (Late st Contact Info) Description 10/12/2021 Transcribe Orders Virtual Department [address] [place] [address] Bo Bee DO [address] [facility] [address] [email or web address] Cervicalgia (Primary Dx) Social History Tobacco Use Types [...] as of this encounter Visit Diagnoses Diagnosis Cervicalgia- Primary documented in this encounter Care Teams Shank Burnisher Relationship Specialty Start Date End Date Bo Bee DO PCP - General Internal Medicine 09/20/20 documented as of this encounter Additional Source Comments The information contained in this document represents components of the legal health record. It is not the complete legal health record.[facility]
[2025-04-26 18:31] LABS: MANUAL DIFF FLAG NO
[2025-04-26 18:37] LABS: Hematocrit 38.8 % (42.0-52.0); Hemoglobin 13.2 g/dl (14.0-18.0); Imm Gran Abs Auto 0.03 X10*3/uL (0.00-0.03); Imm Gran Pct Auto 0.4 % (0.0-0.4); Lymphocytes Absolute Auto 2.1 X10*3/uL (1.2-4.9); Mean Corpuscular HGB Conc 34.0 g/dl (31.0-36.0); Mean Corpuscular Hemoglobin 32.4 pg (27.0-33.0); Mean Corpuscular Volume 95.1 fL (80.0-98.0); NRBC Abs Auto 0.000 X10*3/uL (0.0-0.012); NRBC Pct Auto 0.0 /100WBC (0.0-0.2); Platelet Count 204 X10*3/uL (160-400); Red Blood Count 4.08 X10*6/uL (4.60-5.80); White Blood Count 8.1 X10*3/uL (4.8-10.8)
[2025-04-26 19:02] LABS: Alanine Aminotransferase 17 U/L (0-40); Albumin Level 4.5 g/dL (3.5-5.0); Alkaline Phosphatase 83 U/L (39-117); Anion Gap 13 (12-20); Aspartate Amino Transferase 23 U/L (5-37); Blood Urea Nitrogen 25 mg/dL (9-16); Calcium 9.4 mg/dL (8.4-10.2); Carbon Dioxide 29 mmol/L (22-29); Chloride 104 mmol/L (96-108); Estimated Glomerular Filt Rate > 60; Potassium 3.6 mmol/L (3.3-5.1); Sodium 142 mmol/L (135-145); Total Protein 7.6 g/dL (6.5-8.0); Uric Acid 6.0 mg/dL (3.4-7.0)
[2025-04-26 19:22] LABS: Folate 9.7 ng/mL (> or = 4.0); Vitamin B12 864 pg/mL (200-900)
[2025-04-26 19:26] LABS: Thyroid Stimulating Hormone 1.88 uIU/mL (0.32-4.0)
== END 2025-04-26 14:16 | disposition home or self-care (01) ==
LOC: HO.MANLDS 14:15
PROVIDERS: Visit Provider Internal Medicine
DX: I10 Essential (primary) hypertension (principal); E34.9 Endocrine disorder, unspecified; R53.82 Chronic fatigue, unspecified; Z13.21 Encounter for screening for nutritional disorder
CPT/HCPCS: 36415; 80053; 82306; 82607; 82746; 84270; 84403; 84443; 84550; 85025